=== PATIENT | male | born 1975 | race Caucasian/White ===

== ENCOUNTER 2020-05-17 17:24 | Emergency (ER) | payer MEDICAID, SELFPAY ==
--- NOTE | 2020-05-17 | ECG_ITS ---
Test Reason : SUBSTANE ABUSE Blood Pressure : / mmHG Vent. Rate : 075 BPM Atrial Rate : 075 BPM P-R Int : 120 ms QRS Dur : 090 ms QT Int : 402 ms P-R-T Axes : 015 018 003 degrees QTc Int : 448 ms Normal sinus rhythm Normal ECG When compared with ECG of 06-JUN-2010 05:32, No significant change was found Referred By: Ceci Hernandez Electronically Signed By:GIDEON JOHNSTON MD
[2020-05-17 19:14] VITALS: BP 102/74; PULSE 81; RESP 18; TEMP 37.1; O2SAT 96; BMI 36.3
--- NOTE | 2020-05-17 19:50 | ED_ITS ---
HPI - Alcohol General Chief Complaint: ETOH/Substance Use <Ceci Hernandez NP - Last Filed: 05/18/20 03:00> Stated Complaint: ANXIETY <Ceci Hernandez NP - Last Filed: 05/18/20 03:00> Time Seen by Provider: 05/17/20 19:59 <Ceci Hernandez NP - Last Filed: 05/18/20 03:00> Source: patient and family <CAROL Woods Last Filed: 05/18/20 03:00> Mode of arrival: ambulatory <Ceci Hernandez NP - Last Filed: 05/18/20 03:00> Limitations: no limitations <Ceci Hernandez NP - Last Filed: 05/18/20 03:00> History of Present Illness HPI narrative: patient presents with anxiety and palpitations after eating marijuana edibles. he is answering questions but slowly, is intoxicated, is able to follow directions at this time. He states to feel high, have some anxiety at this time, but does not report any chest pain or pressure, palpitations, shortness of breath, abdominal pain, abdominal distention, dysuria, hematuria, and any other concerning symptoms at this time. He does not have any suicidal ideation, homicidal ideation, or auditory visual hallucinations. <CAROL Woods Last Filed: 05/18/20 03:00> Associated symptoms: denies other symptoms <Ceci Hernandez NP - Last Filed: 05/18/20 03:00> Related Data Allergies/Adverse Reactions: Allergies Allergy/AdvReac Type Severity Reaction Status Date / Time No Known Allergies Allergy Mild NOT Verified 05/17/20 19:17 APPLICABLE <Ceci Hernandez NP - Last Filed: 05/18/20 03:00> Review of Systems Review of Systems: Yes all other systems are reviewed and are negative <Ceci Hernandez NP - Last Filed: 05/18/20 03:00> Constitutional: Constitutional: Reports no additional constitutional complaints <CAROL Woods Last Filed: 05/18/20 03:00> Eyes: Eyes: Reports no additional eye complaints <CAROL Woods Last Filed: 05/18/20 03:00> ENT: Reports system reviewed and no additional complaints, except as documented <Ceci Hernandez NP - Last Filed: 05/18/20 03:00> Cardiovascular: Cardiovascular: Reports palpitations <Ceci Hernandez NP - Last Filed: 05/18/20 03:00> Respiratory: Respiratory: Reports no additional respiratory complaints <Ceci Hernandez NP - Last Filed: 05/18/20 03:00> Gastrointestinal: Gastrointestinal: Reports no additional gastrointestinal complaints <Ceci Hernandez NP - Last Filed: 05/18/20 03:00> Genitourinary: Genitourinary: Reports no additional male genitourinary complaints <Ceci Hernandez NP - Last Filed: 05/18/20 03:00> Musculoskeletal: Musculoskeletal: Reports no additional musculoskeletal complaints <Ceci Hernandez NP - Last Filed: 05/18/20 03:00> Integumentary/Breasts: Skin/Breast: Reports system reviewed and no additional complaints, except as docu <Ceci Hernandez NP - Last Filed: 05/18/20 03:00> Neurologic: Reports system reviewed and no additional complaints, except as documented <Ceci Hernandez NP - Last Filed: 05/18/20 03:00> Psychiatric: Psychiatric: Reports no additional psychiatric complaints <Ceci Hernandez NP - Last Filed: 05/18/20 03:00> Endocrine: Endocrine: Reports palpitations <Ceci Hernandez NP - Last Filed: 05/18/20 03:00> Hematologic/Lymphatic: Hematologic/Lymphatic: Reports no additional hematologic/lymphatic complaints <Ceci Hernandez NP - Last Filed: 05/18/20 03:00> [facility] Past Medical History Attestation statement: The following information was validated with the patient. <Ceci Hernandez NP - Last Filed: 05/18/20 03:00> Source: old records reviewed and obtained from family <Ceci Hernandez NP - Last Filed: 05/18/20 03:00> Medical History: Medical History Patient denies medical problems <Ceci Hernandez NP - Last Filed: 05/18/20 03:00> Social History Social History: Social History Advance Directives: No Advance Directives Information Provided: Yes <CAROL Woods Last Filed: 05/18/20 03:00> Physical Exam Vital Signs and I&O and Narrative: Vital Signs and I&O: Vital Signs Temp 98.0 F 05/17/20 20:09 Pulse 75 05/17/20 20:09 Resp 18 05/17/20 20:09 BP 105/65 05/17/20 20:09 Pulse Ox 95 05/17/20 20:09 Intake & Output 05/17/20 05/18/20 05/18/20 18:59 06:59 18:59 Weight 102.058 kg Body Mass Index 36.3 <CAROL Woods Last Filed: 05/18/20 03:00> Vital Signs and I&O: Vital Signs Temp 98.0 F 05/17/20 20:09 Pulse 75 05/17/20 20:09 Resp 18 05/17/20 20:09 BP 105/65 05/17/20 20:09 Pulse Ox 95 05/17/20 20:09 Intake & Output 05/17/20 05/18/20 05/18/20 18:59 06:59 18:59 Weight 102.058 kg Body Mass Index 36.3 <Samuel Tillman DO - Last Filed: 05/18/20 17:39> Const: General: cooperative, comfortable, no acute distress, well developed, alert, awake, Physically active and anxious <CAROL Woods Last Filed: 05/18/20 03:00> Nutritional Appearance: overweight <Ceci Hernandez NP - Last Filed: 05/18/20 03:00> Orientation/consciousness: patient oriented x3 <CAROL Woods Last Filed: 05/18/20 03:00> Limitations: no limitations <Ceci Hernandez NP - Last Filed: 05/18/20 03:00> HENMT: Head: Yes normal to inspection <CAROL Woods Last Filed: 05/18/20 03:00> Ears: hearing grossly normal bilaterally <Ceci Hernandez NP - Last Filed: 05/18/20 03:00> Face and sinus: Yes normal facial exam <Ceci Hernandez NP - Last Filed: 05/18/20 03:00> Mouth: Normal oral and palatal mucosa present <Ceci Hernandez NP - Last Filed: 05/18/20 03:00> Throat: Yes posterior oropharynx normal, Yes tonsils normal and Yes uvula midline <Ceci Hernandez NP - Last Filed: 05/18/20 03:00> Eyes: Periorbital: periorbital findings normal <Ceci Hernandez NP - Last Filed: 05/18/20 03:00> Pupils: Equal, round and reactive pupils present <Ceci Hernandez NP - Last Filed: 05/18/20 03:00> EOM: EOMs intact bilaterally <Ceci Hernandez NP - Last Filed: 05/18/20 03:00> Neck: Neck: Yes normal visual inspection, Yes full ROM, Yes no lymphadenopathy, Yes no meningeal signs and Yes trachea midline <Ceci Hernandez NP - Last Filed: 05/18/20 03:00> Chest: Chest palpation & inspection: normal inspection of the chest <Ceci Hernandez NP - Last Filed: 05/18/20 03:00> Resp: Effort & Inspection: normal respiratory effort and able to speak in complete sentences <Ceci Hernandez NP - Last Filed: 05/18/20 03:00> Cardio: Jugular venous distension: no JVD <Ceci Hernandez NP - Last Filed: 05/18/20 03:00> Rate: regular rate <Ceci Hernandez NP - Last Filed: 05/18/20 03:00> Rhythm: regular rhythm <Ceci Hernandez NP - Last Filed: 05/18/20 03:00> Heart sounds: S1 normal heart sound present and S2 normal heart sound present <Ceci Hernandez NP - Last Filed: 05/18/20 03:00> GI: Inspection: Yes normal to inspection <Ceci Hernandez NP - Last Filed: 05/18/20 03:00> : General: Yes Bimanual renal exam normal bilaterally <Ceci Hernandez NP - Last Filed: 05/18/20 03:00> Skin: General skin exam: no rashes or lesions noted <Ceci Hernandez NP - Last Filed: 05/18/20 03:00> Neuro: General: patient oriented x3 and no meningeal signs <Ceci Hernandez NP - Last Filed: 05/18/20 03:00> Cranial nerves: Yes CN's II-XII intact bilaterally, Yes Facial sensation intact/muscles of mastication intact, Yes Intact sense of smell present, Yes Equal, round and reactive pupils present and Yes Nystagmus not present <Ceci Hernandez NP - Last Filed: 05/18/20 03:00> Cognition (Neuro): normal cognition <Ceci Hernandez NP - Last Filed: 05/18/20 03:00> Gait exam (Neuro): Normal gait present <Ceci Hernandez NP - Last Filed: 05/18/20 03:00> Motor exam (neuro): 5/5 motor strength present throughout <Ceci Hernandez NP - Last Filed: 05/18/20 03:00> Extrem: General: Yes normal to inspection <Ceci Hernandez NP - Last Filed: 05/18/20 03:00> Psych: Appearance: grossly normal <Ceci Hernandez NP - Last Filed: 05/18/20 03:00> Mental Status: mental status grossly normal <Ceci Hernandez NP - Last File d: 05/18/20 03:00> Speech and movement: Normal speech and movement present <Ceci Hernandez NP - Last Filed: 05/18/20 03:00> Affect: normal affect <Ceci Hernandez NP - Last Filed: 05/18/20 03:00> Attitude: cooperative <Ceci Hernandez NP - Last Filed: 05/18/20 03:00> Course Course Course Narrative: 44-year-old male presents with anxiety and palpitations after eating marijuana edibles. At this time patient's physical exam is normal, we will order EKG for his concerns regarding palpitations. Discussion with family, his states that he did eat the edible and was having a difficult time managing this symptoms of marijuana intoxication. Patient is not suicidal, homicidal, is not having any auditory or visual hallucinations. Does not have any other complaints at this time. EKG is normal sinus rhythm. Plan of care is to discharge home, his will pick him up. Discussion with regarding plan of care, will remind him to be cautious when doing drugs. <Ceci Hernandez NP - Last Filed: 05/18/20 03:00> MDM - Alcohol MDM Narrative Medical decision making narrative: Marijuana intoxication, cardiac arrhythmia, substance abuse <Ceci Hernandez NP - Last Filed: 05/18/20 03:00> Medical Records Attestation: I reviewed the patient's medical records. <Ceci Hernandez NP - Last Filed: 05/18/20 03:00> ECG Data Attestation: I personally reviewed and interpreted this ECG as follows: <CAROL Woods Last Filed: 05/18/20 03:00> ECG interpretation date: 05/17/20 <Ceci Hernandez NP - Last Filed: 05/18/20 03:00> ECG interpretation time: 20:07 <Ceci Hernandez NP - Last Filed: 05/18/20 03:00> Interpretation: normal sinus rhythm, 75 beats per minute, p.r. interval 120, QTC 402, QTC 448, no indication of ST elevation or depression. No significant change when compared to EKG of June 06, 2010 <Ceci Hernandez NP - Last Filed: 05/18/20 03:00> Discharge Plan Discharge Clinical Impression: Marijuana intoxication Qualifiers: Complication of substance-induced condition: uncomplicated Qualified Code(s): F12.920 - Cannabis use, unspecified with intoxication, uncomplicated <Ceci Hernandez NP - Last Filed: 05/18/20 03:00> Patient Disposition: Home, Self-Care <Ceci Hernandez NP - Last Filed: 05/18/20 03:00> Instructions: Cannabis Abuse (ED) <Ceci Hernandez NP - Last Filed: 05/18/20 03:00> Additional Instructions: please consider using less marijuana edible. Your EKG is normal sinus rhythm. There is no indication of swelling in Your mouth or throat. the symptoms that you are feeling are associated with marijuana intoxication. Follow-up with primary care provider as needed. Return to the emergency department for any new, concerning, or worsening symptoms. <Ceci Hernandez NP - Last Filed: 05/18/20 03:00> Interventions: ED Discharge Assessment Last Done: 05/17/20 20:58 <Ceci Hernandez NP - Last Filed: 05/18/20 03:00> Discharge Date/Time: 05/17/20 20:59 <Ceci Hernandez NP - Last Filed: 05/18/20 03:00>
[2020-05-17 20:09] VITALS: BP 105/65; PULSE 75; RESP 18; TEMP 36.7; O2SAT 95
--- NOTE | 2020-05-17 20:48 | PC.NURSE ---
SPK W/PTS , PT TO WAIT IN WAITING ROOM FOR P/U
== END 2020-05-17 20:59 | disposition home or self-care (01) ==
PROVIDERS: Emergency Provider Emergency Medicine
DX: F12.120 Cannabis abuse with intoxication, uncomplicated (principal)
CPT/HCPCS: 93005; 99283

== ENCOUNTER 2020-06-19 12:59 | Outpatient (REF) | payer MEDICAID, SELFPAY | END 2020-06-19 13:00 | disposition home or self-care (01) | LOC: HO.LAB 12:59 | PROVIDERS: Visit Provider Internal Medicine | DX: Z20.828 Contact with and (suspected) exposure to other viral communicable diseases (principal) | CPT/HCPCS: C9803; U0003 ==

== ENCOUNTER 2020-12-12 10:33 | Emergency (ER) | payer MEDICAID, SELFPAY ==
--- NOTE | ~2020-12-12 | XR_ITS ---
EXAMINATION: XR LUMBOSACRAL SPINE CLINICAL INFORMATION: Status post injury. Pain COMPARISON: None TECHNIQUE: Three views of the lumbosacral spine. FINDINGS: There is normal lumbar lordosis. There were heights, alignment and disc heights are normal. There is no visible acute fracture, dislocation or subluxation. No lytic or sclerotic process seen. The paravertebral soft tissues are normal. XR/XR lumbar spine 2-3V IMPRESSION: Unremarkable lumbar spine exam.
[2020-12-12 10:35] VITALS: BP 127/85; PULSE 69; RESP 18; TEMP 36.4; O2SAT 98; BMI 33.3
--- NOTE | 2020-12-12 11:24 | ED.BACK ---
HPI - Back Pain/Injury General Chief Complaint: Back Pain/Injury Stated Complaint: back pain Time Seen by Provider: 12/12/20 10:56 Source: patient Mode of arrival: ambulatory Limitations: no limitations History of Present Illness HPI Narrative: 45 y/o male with no significant medical history presents to the ER with acute onset of right lower back pain that started 2 days ago after he was lifting a heavy potted plant. He states he felt his back tighten up and his mobility has been limited since. He reports pain is worse with palpation and movement. He has no numbness, tingling, weakness, incontinence. No fevers or chills. He is walking with a limp due to the pain. 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 elicited complaint: back pain and back injury Onset (ago): day(s) (2) Timing: constant Severity: moderate Similar Symptoms Previously: Yes (once several years ago) Quality: aching and spasming Location: right lower back Radiation: none Exacerbating factors: movement and walking Relieving factors: immobilization and sitting upright Context: while lifting Associated symptoms: denies other symptoms Treatments prior to arrival: NSAIDS Work related injury: No Related Data Previous Rx's Medication Instructions Recorded cyclobenzaprine 10 mg PO TID PRN #12 tab 12/12/20 ibuprofen 600 mg PO Q8H PRN #20 tab 12/12/20 lidocaine [Lidoderm] 1 patch TOPICAL DAILY #15 ea 12/12/20 Allergies Allergy/AdvReac Type Severity Reaction Status Date / Time No Known Allergies Allergy Mild NOT Verified 12/12/20 10:35 APPLICABLE Review of Systems Review of Systems: Constitutional: No Fever, No Chills Gastrointestinal: No Nausea, No Vomiting, No Diarrhea, No abdominal Pain Genitourinary: No Dysuria, No Urinary Frequency, No Hematuria Musculoskeletal: No joint pain, + Myalgias Skin: No Skin Lesions, No rash Neuro: No Weakness, No Numbness Heme/Lymph: No Bruising PMFSH Past Medical History Attestation statement: The following information was validated with the patient. Medical History Patient denies medical problems Social History Social History Advance Directives: No Advance Directives Information Provided: No Physical Exam Vital Signs: Vital Signs: Last Vital Signs Temp 97.6 F 12/12/20 10:35 Pulse 69 12/12/20 10:35 Resp 18 12/12/20 10:35 BP 127/85 12/12/20 10:35 Pulse Ox 98 12/12/20 10:35 Body Mass Index 33.3 Appearance: Alert. Oriented X3. No acute distress. HEENT: normal inspection CVS: Normal heart rate and rhythm. Pulses normal. Respiratory: No respiratory distress. Skin: Skin warm and dry. Normal skin color. Normal skin turgor. No rashes. Back: normal inspection, no spinal tenderness throughout. significant right upper lumbar area with soft tissue tenderness and muscle spasm. pain on spinal flexion and rotation to the left Extremities: atraumatic, no edema Neuro: Oriented X 3. No motor deficit. No sensory deficit. Walks with steady gait. Course Course Course Narrative: 45 y/o male presenting with right lower back pain after heavy lifting 2 days ago. XR is normal. No red flag symptoms of LBP. His exam and clinical presentation are consistent with muscular strain and spasm. Will treat with NSAID, muscle relaxer and lidoderm. Patient is agreeable with plan and encouraged to f/u with his PCP. Ganesh for d/c. Critical Care Time Critical Care Time Critical Care Time: No Discharge Plan Discharge Clinical Impression: Strain of lumbar region Qualifiers: Encounter type: initial encounter Qualified Code(s): S39.012A - Strain of muscle, fascia and tendon of lower back, initial encounter Patient Disposition: Home, Self-Care Instructions: Low Back Strain (ED), Lower Back Exercises (ED) Additional Instructions: Your x-ray today was normal. Your pain is due to muscle strain and spasm. No bending, lifting or twisting. Use ice several times per day for 20 minutes at a time for the next 48 hours and then change to heat. Take medications as prescribed to help with pain and discomfort. Follow up with your Primary Care Doctor this week. If your pain worsens, if you develop new numbness, tingling, weakness, loss of function or incontinence call 911 or come back to the ER right away for evaluation. Tu radiograf?a de hoy fue normal. Pastrana dolor se debe a josh distensi?n muscular y a un espasmo. Sin agacharse, levantar ni torcer. Use hielo varias veces al d?a giuliana 20 minutos a la vez giuliana las pr?ximas 48 horas y luego cambie a calor. [place] los medicamentos recetados para aliviar el dolor y la incomodidad. Eladia un seguimiento con pastrana m?dico de atenci?n primaria esta semana. Si pastrana dolor empeora, si presenta entumecimiento, hormigueo, debilidad, p?rdida de funci?n o incontinencia nuevos, llame al 911 o regrese a la mare de emergencias de inmediato para josh evaluaci?n. Prescriptions: New cyclobenzaprine 10 mg tablet 10 mg PO TID PRN (Reason: muscle spasm) Qty: 12 RF: 0 lidocaine [Lidoderm] 5 % adhesive patch,medicated 1 patch topical DAILY Qty: 15 RF: 0 ibuprofen 600 mg tablet 600 mg PO Q8H PRN (Reason: pain) Qty: 20 RF: 0 Stand Alone Forms: Work/School Release Print Language: Kyrgyz
== END 2020-12-12 11:38 | disposition home or self-care (01) ==
PROVIDERS: Emergency Provider Emergency Medicine
DX: S39.012A Strain of muscle, fascia and tendon of lower back, initial encounter (principal); X50.0XXA Overexertion from strenuous movement or load, initial encounter; Y93.H2 Activity, gardening and landscaping; Y92.017 Garden or yard in single-family (private) house as the place of occurrence of the external cause; Y99.9 Unspecified external cause status
CPT/HCPCS: 72100; 99283

== ENCOUNTER 2021-01-15 17:22 | Emergency (ER) | payer MEDICAID, SELFPAY ==
--- NOTE | ~2021-01-15 | XR_ITS ---
EXAMINATION: XR PELVIS CLINICAL INFORMATION: Status post fall with question of pubic rami fracture COMPARISON: None TECHNIQUE: AP view of the pelvis. FINDINGS: The bones and soft tissues are normal. No fracture. Sacroiliac and hip joints are normal. Pubic symphysis is normal. No abnormal soft tissue calcifications. XR/XR pelvis 1-2V IMPRESSION: Normal pelvis.
[2021-01-15 17:42] VITALS: BP 110/75; PULSE 101; RESP 16; TEMP 35.8; O2SAT 97; BMI 30.4
--- NOTE | 2021-01-15 18:17 | ED_ITS ---
HPI - Extremity Injury (Lower) General Chief Complaint: Extremity Injury, Lower Stated Complaint: leg pain Time Seen by Provider: 01/15/21 18:12 Source: patient Mode of arrival: ambulatory Limitations: no limitations History of Present Illness HPI Narrative: Patient was playing baseball 2 days ago split his leg open complaining of pain right groin since then no other injuries patient ambulatory taking ibuprofen and still having the pain in his right groin Related Data Previous Rx's Medication Instructions Recorded cyclobenzaprine 10 mg PO TID PRN #12 tab 12/12/20 ibuprofen 600 mg PO Q8H PRN #20 tab 12/12/20 lidocaine [Lidoderm] 1 patch TOPICAL DAILY #15 ea 12/12/20 Allergies Allergy/AdvReac Type Severity Reaction Status Date / Time No Known Allergies Allergy Mild NOT Verified 12/12/20 10:35 APPLICABLE Review of Systems Review of Systems: Yes all other systems are reviewed and are negative [facility] Past Medical History Medical History Patient denies medical problems Social History Social History Advance Directives: No Advance Directives Information Provided: No Physical Exam Vital Signs: Vital Signs: Last Vital Signs Temp 96.4 F L 01/15/21 17:42 Pulse 101 H 01/15/21 17:42 Resp 16 01/15/21 17:42 BP 110/75 01/15/21 17:42 Pulse Ox 97 01/15/21 17:42 Body Mass Index 30.4 Const: General: no acute distress and well developed HENMT: Head: Yes normocephalic and Yes atraumatic Resp: Effort & Inspection: normal respiratory effort Cardio: Palpation: normal PMI Rate: regular rate Rhythm: regular rhythm Heart sounds: S1 normal heart sound present and S2 normal heart sound present Extrem: Upper/lower leg/hip images: 1. Tenderness in the right groin area which increases on hip flexion and adduction no skin bruising no swelling no bony tenderness ,good range of movement MDM - Extremity Injury (Lower) MDM Narrative Medical decision making narrative: X-ray of the pelvis negative clinically patient has right groin strain will discharge patient home on tramadol and Flexeril Discharge Plan Discharge Prescriptions: No Action cyclobenzaprine 10 mg tablet 10 mg PO TID PRN (Reason: muscle spasm) Qty: 12 RF: 0 lidocaine [Lidoderm] 5 % adhesive patch,medicated 1 patch topical DAILY Qty: 15 RF: 0 ibuprofen 600 mg tablet 600 mg PO Q8H PRN (Reason: pain) Qty: 20 RF: 0
== END 2021-01-15 19:12 | disposition home or self-care (01) ==
PROVIDERS: Emergency Provider Internal Medicine
DX: M79.604 Pain in right leg (principal); R10.31 Right lower quadrant pain; Z79.899 Other long term (current) drug therapy
CPT/HCPCS: 72170; 99283

== ENCOUNTER 2021-03-31 13:47 | Emergency (ER) | payer MEDICAID, SELFPAY ==
--- NOTE | ~2021-03-31 | XR_ITS ---
EXAMINATION: CR X-RAY FOOT AND ANKLE RIGHT CLINICAL INFORMATION: Right foot and ankle pain status post injury. COMPARISON: None TECHNIQUE: 3 views each of the right foot and ankle were obtained. FINDINGS: The ankle joint and mortise are intact. There is no acute fracture or dislocation. The tarsal bones are normally aligned. The metatarsals and phalanges demonstrate no acute fracture. A concave defect is seen along the distal/medial aspect of the proximal phalanx of the first digit. The soft tissues are unremarkable. XR/XR foot RT min 3V IMPRESSION: 1. No acute fracture of the right foot and ankle. 2. Small concave defect along the distal/medial aspect of the proximal veins of the first digit is nonspecific. This does not appear acute and could be degenerative in nature. Gout can also cause this appearance. Correlate with patient history.
--- NOTE | ~2021-03-31 | XR_ITS ---
EXAMINATION: CR X-RAY FOOT AND ANKLE RIGHT CLINICAL INFORMATION: Right foot and ankle pain status post injury. COMPARISON: None TECHNIQUE: 3 views each of the right foot and ankle were obtained. FINDINGS: The ankle joint and mortise are intact. There is no acute fracture or dislocation. The tarsal bones are normally aligned. The metatarsals and phalanges demonstrate no acute fracture. A concave defect is seen along the distal/medial aspect of the proximal phalanx of the first digit. The soft tissues are unremarkable. XR/XR ankle RT min 3V IMPRESSION: 1. No acute fracture of the right foot and ankle. 2. Small concave defect along the distal/medial aspect of the proximal veins of the first digit is nonspecific. This does not appear acute and could be degenerative in nature. Gout can also cause this appearance. Correlate with patient history.
[2021-03-31 13:52] VITALS: BP 130/82; PULSE 106; O2SAT 96
[2021-03-31 14:01] VITALS: BP 130/82; PULSE 99; RESP 18; TEMP 36.9; O2SAT 96; BMI 35.5
--- NOTE | 2021-03-31 15:36 | ED.LOWEXIN ---
HPI - Extremity Injury (Lower) General Chief Complaint: Extremity Injury, Lower Stated Complaint: ankle injury Time Seen by Provider: 03/31/21 13:59 History of Present Illness HPI Narrative: Patient complains of right ankle pain and swelling after twisting it playing ball today, pain is mild, no numbness or tingling no other injury Related Data Previous Rx's Medication Instructions Recorded cyclobenzaprine 10 mg tablet 10 mg PO TID PRN #12 tab 12/12/20 ibuprofen 600 mg tablet 600 mg PO Q8H PRN #20 tab 12/12/20 lidocaine 5 % topical patch 1 patch TOPICAL DAILY #15 ea 12/12/20 (Lidoderm) cyclobenzaprine 10 mg tablet 10 mg PO Q8H #20 tab 01/15/21 tramadol 50 mg tablet 50 mg PO Q6H PRN #20 tab 01/15/21 ibuprofen 600 mg tablet 600 mg PO Q6H PRN #20 tab 03/31/21 Allergies Allergy/AdvReac Type Severity Reaction Status Date / Time No Known Allergies Allergy Mild NOT Verified 12/12/20 10:35 APPLICABLE Review of Systems Review of Systems: Positive for right ankle pain and swelling Negatives are no headache no loss of consciousness no head injury no neck pain no numbness weakness or tingling no back pain no other extremity injuries no lacerations Yes all other systems are reviewed and are negative PMFSH Past Medical History Source: nursing notes reviewed Medical History Patient denies medical problems Physical Exam Vital Signs: Vital Signs: Last Vital Signs Temp 98.5 F 03/31/21 14:01 Pulse 99 03/31/21 14:01 Resp 18 03/31/21 14:01 BP 130/82 03/31/21 14:01 Pulse Ox 96 03/31/21 14:01 Body Mass Index 35.5 General appearance no acute distress Head is normocephalic atraumatic Neck is supple nontender Respiratory no distress The back full range of motion Right angle had tenderness and swelling around the lateral malleolus and some more minor swelling around the medial malleolus, skin is intact and neurovascular intact distal, the knee has full range of motion without any tenderness, Achilles tendon is intact and functional Other extremities normal Skin no lacerations Neuro no focal motor sensory deficits Course Course Course Narrative: Right ankle x-rays were negative and patient is discharged to follow with orthopedist as needed Discharge Plan Discharge Clinical Impression: Sprain of ankle, right Patient Disposition: Home, Self-Care Additional Instructions: X-ray did not show any broken bone If needed follow with orthopedist if not getting better in 1-2 weeks Return any time any worse condition or concerns Prescriptions: New ibuprofen 600 mg tablet 600 mg PO Q6H PRN (Reason: pain) Qty: 20 RF: 0 No Action cyclobenzaprine 10 mg tablet 10 mg PO TID PRN (Reason: muscle spasm) Qty: 12 RF: 0 lidocaine [Lidoderm] 5 % adhesive patch,medicated 1 patch topical DAILY Qty: 15 RF: 0 ibuprofen 600 mg tablet 600 mg PO Q8H PRN (Reason: pain) Qty: 20 RF: 0 cyclobenzaprine 10 mg tablet 10 mg PO Q8H Qty: 20 RF: 0 tramadol 50 mg tablet 50 mg PO Q6H PRN (Reason: pain) Qty: 20 RF: 0 Referrals: Kenyon Hunter MD [Physician] - 2 days (Right ankle sprain) Stand Alone Forms: Work/School Release Interventions: ED Discharge Assessment Last Done: 03/31/21 15:43 Discharge Date/Time: 03/31/21 15:44
== END 2021-03-31 15:44 | disposition home or self-care (01) ==
PROVIDERS: Emergency Provider Internal Medicine
DX: S93.401A Sprain of unspecified ligament of right ankle, initial encounter (principal); X50.1XXA Overexertion from prolonged static or awkward postures, initial encounter; Y93.64 Activity, baseball; Y92.320 Baseball field as the place of occurrence of the external cause; Y99.9 Unspecified external cause status
CPT/HCPCS: 73610; 73630; 99283

== ENCOUNTER → 2021-04-12 08:46 | Outpatient (BNVA) | payer MEDICAID, SELFPAY | PROVIDERS: Visit Provider Physician Assistant | DX: S86.111A Strain of other muscle(s) and tendon(s) of posterior muscle group at lower leg level, right leg, initial encounter (principal) | CPT/HCPCS: 99202 ==

== ENCOUNTER → 2021-05-04 08:45 | Outpatient (BNVA) | payer MEDICAID, SELFPAY | PROVIDERS: Visit Provider Physician Assistant | DX: S86.111D Strain of other muscle(s) and tendon(s) of posterior muscle group at lower leg level, right leg, subsequent encounter (principal); S93.401D Sprain of unspecified ligament of right ankle, subsequent encounter | CPT/HCPCS: 99212 ==

== ENCOUNTER → 2021-06-15 12:06 | Outpatient (BNVA) | payer MEDICAID, SELFPAY | PROVIDERS: Visit Provider Physician Assistant ==

== ENCOUNTER 2021-08-31 13:57 | Outpatient (REF) | payer MEDICAID, SELFPAY ==
--- NOTE | ~2021-08-31 | US_ITS ---
EXAMINATION: US VENOUS ULTRASOUND WITH DOPPLER LOWER EXTREMITY, RIGHT CLINICAL INFORMATION: This is a 46-year-old male with right leg swelling and pain. Possible deep vein thrombosis. COMPARISON: None TECHNIQUE: Ultrasound of the deep veins is performed from the hip to the calf with compression sonography and color and pulse Doppler assessment. Spectral analysis with color-flow imaging is performed. FINDINGS: There is normal venous compression and respiratory variation and augmented flow. The visualized common femoral vein, superficial femoral vein, profunda femoral vein, popliteal vein, and the trifurcation region shows no evidence of deep venous thrombosis. There is no significant popliteal fossa cyst. If the patient's symptoms persist, followup ultrasound in 5 days 7 days might be of value to exclude proximal propagation from a non-visualized calf vein. US/US venous duplex LE RT IMPRESSION: No DVT demonstrated in the right lower extremity.
== END 2021-08-31 13:58 | disposition home or self-care (01) ==
LOC: HO.XRAY 13:57
PROVIDERS: Visit Provider Nurse Practitioner
DX: M79.661 Pain in right lower leg (principal)
CPT/HCPCS: 93971

== ENCOUNTER 2021-09-19 17:32 | Emergency (ER) | payer MEDICAID, SELFPAY ==
--- NOTE | ~2021-09-19 | XR_ITS ---
EXAMINATION: XR CHEST CLINICAL INFORMATION: Cough and shortness of breath COMPARISON: Chest and RIBS 12/20/2018 TECHNIQUE: 2 views of the chest were obtained. FINDINGS: The lungs are mildly hypoinflated with some minimal left basilar atelectasis. No significant abnormality is noted involving the heart, lungs, mediastinum, bony thorax or soft tissues. No pleural effusions are seen. No infiltrates or lung masses. XR/XR chest 2V IMPRESSION: No acute intrathoracic disease
--- NOTE | ~2021-09-19 | CT_ITS ---
EXAMINATION: CT ANGIOGRAM OF THE CHEST WITH AND WITHOUT CONTRAST (CT PULMONARY ANGIOGRAM FOR PE) CLINICAL INFORMATION: Positive d-dimer. Shortness of breath and chest pain. Positive Covid. COMPARISON: Chest x-ray earlier today and chest x-ray 11/20/2017. Chest CT 05/02/2018 was also reviewed. TECHNIQUE: Prior to contrast administration, noncontrast localization images were obtained. Subsequently, multidetector volumetric imaging was performed from the thoracic inlet to below the diaphragms following the administration of 75 mL Omnipaque 350 intravenous contrast. No contrast reaction reported Sagittal, coronal, and MIP oblique sagittal reformatted images were obtained on the CT workstation, uploaded to PACS, and reviewed. Detailed lung parenchyma evaluation is limited secondary to respiratory motion artifact. This CT examination was performed using dose optimization techniques as appropriate, variously including the following: *Automated exposure control *Adjustment of mA and/or kV according to patient size (this includes techniques or standardized protocols for targeted exams where dose is matched to indication/reason for exam; i.e. extremities or head) *Use of iterative reconstruction technique Total exam dose-length product 382 mGy-cm FINDINGS: The heart is normal in size. There is no pericardial effusion. No pulmonary arterial filling defect within the main or segmental pulmonary arteries to suggest pulmonary embolus. Subsegmental pulmonary arteries are suboptimally evaluated secondary to diffuse bilateral airspace disease, however, no gross subsegmental pulmonary emboli is noted. Normal caliber thoracic aorta. No gross mediastinal lymphadenopathy. No enlarged axillary lymph nodes. Central airways are patent. Lungs are mildly hypoinflated. Patchy groundglass opacities are noted bilaterally in a predominantly peripheral distribution. There is no gross lobar consolidation present. No pleural effusion or pneumothorax. Evaluation for pulmonary nodule is suboptimal given background of airspace disease and respiratory motion artifact. Visualized portions of the upper abdomen demonstrate an approximately 2.8 cm gallstone within an otherwise unremarkable appearing gallbladder. No acute osseous abnormalities. CT/CT angio chest PE protocol IMPRESSION: -No pulmonary emboli identified. -Patchy bilateral airspace disease is most consistent with provided history of Covid pneumonia. Cholelithiasis. VTE: negative
[2021-09-19 18:20] VITALS: BP 123/76; PULSE 88; RESP 19; TEMP 36.6; O2SAT 98; BMI 34.7
--- NOTE | 2021-09-19 19:22 | ECG_ITS ---
Test Reason : SOB Blood Pressure : / mmHG Vent. Rate : 072 BPM Atrial Rate : 072 BPM P-R Int : 160 ms QRS Dur : 078 ms QT Int : 394 ms P-R-T Axes : 015 025 -04 degrees QTc Int : 431 ms Normal sinus rhythm Cannot rule out Inferior infarct , age undetermined Abnormal ECG When compared with ECG of 17-MAY-2020 20:07, No significant change was found Referred By: Jadyn Cho Electronically Signed By:Jaya Galvez
--- NOTE | 2021-09-19 19:24 | ED.URI ---
HPI - URI/Sore Throat General Chief Complaint: Upper Respiratory Symptoms Stated Complaint: diff breathing/ chest pains Time Seen by Provider: 09/19/21 18:44 Source: patient and hourly sign language interpreter Mode of arrival: ambulatory Limitations: language barrier History of Present Illness HPI Narrative: 46 yo male healthy here with cough x 1 week with chest discomfort with coughing and back pain with coughing and deep breathing. No SOB, leg swelling or pain, fevers, chills. No recent travel or sick contact. No history of blood clots. No family history of blood clots. Patient not vaccinated for COVID Related Data Previous Rx's Medication Instructions Recorded cyclobenzaprine 10 mg tablet 10 mg PO TID PRN #12 tab 12/12/20 ibuprofen 600 mg tablet 600 mg PO Q8H PRN #20 tab 12/12/20 lidocaine 5 % topical patch 1 patch TOPICAL DAILY #15 ea 12/12/20 (Lidoderm) cyclobenzaprine 10 mg tablet 10 mg PO Q8H #20 tab 01/15/21 tramadol 50 mg tablet 50 mg PO Q6H PRN #20 tab 01/15/21 ibuprofen 600 mg tablet 600 mg PO Q6H PRN #20 tab 03/31/21 Allergies Allergy/AdvReac Type Severity Reaction Status Date / Time No Known Allergies Allergy Mild NOT Verified 05/04/21 09:13 APPLICABLE Review of Systems Review of Systems: Yes all other systems are reviewed and are negative Constitutional: Constitutional: Reports no additional constitutional complaints, Denies body ache(s), Denies chills, Denies fever(s), Denies headache(s) and Denies weakness Eyes: Eyes: Reports no additional eye complaints and Denies change in vision ENT: Reports system reviewed and no additional complaints, except as documented, Denies dizziness, Denies headache(s), Denies nasal congestion, Denies nasal discharge and Denies neck pain Cardiovascular: Cardiovascular: Reports no additional cardiovascular complaints, Reports chest pain, Denies leg edema and Denies dyspnea Respiratory: Respiratory: Reports no additional respiratory complaints, Reports cough and Denies dyspnea Gastrointestinal: Gastrointestinal: Reports no additional gastrointestinal complaints, Denies abdominal pain, Denies diarrhea, Denies nausea and Denies vomiting Genitourinary: Genitourinary: Denies urinary incontinence Musculoskeletal: Musculoskeletal: Reports no additional musculoskeletal complaints, Reports back pain, Denies arthralgias, Denies joint swelling, Denies neck pain, Denies numbness and Denies tingling Integumentary/Breasts: Skin/Breast: Reports system reviewed and no additional complaints, except as docu and Denies rash Neurologic: Reports system reviewed and no additional complaints, except as documented, Denies Abnormal speech present, Denies dizziness, Denies headache(s), Denies numbness, Denies tingling and Denies weakness PMF Past Medical History Attestation statement: The following information was validated with the patient. 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 Physical Exam Vital Signs: Vital Signs: Last Vital Signs Temp 98 F 09/19/21 18:20 Pulse 88 09/19/21 18:20 Resp 19 09/19/21 18:20 BP 123/76 09/19/21 18:20 Pulse Ox 98 09/19/21 18:20 BMI result Body Mass Index 34.7 Const: General: cooperative, healthy appearing, comfortable and no acute distress Orientation/consciousness: patient oriented x3 Limitations: no limitations HENMT: Head: Yes normal to inspection Ears: hearing grossly normal bilaterally and TM's normal bilaterally General nose exam: Normal external nose present Face and sinus: Yes normal facial exam Mouth: Normal oral and palatal mucosa present Throat: Yes posterior oropharynx normal, Yes tonsils normal and Yes uvula midline Eyes: General: appearance normal, both eyes and all related structures Pupils: Equal, round and reactive pupils present Neck: Neck: Yes normal visual inspection Chest: Chest palpation & inspection: normal inspection of the chest and tenderness (Chest discomfort with palpation, coughing and deep breathing) Resp: Effort & Inspection: normal respiratory effort Auscultation: clear to auscultation bilaterally Cardio: Rate: regular rate Rhythm: regular rhythm Peripheral pulses: Peripheral pulses 2+ throughout GI: Inspection: Yes normal to inspection Palpation (GI): Soft to palpation and nontender Auscultation: normal bowel sounds Back/Spine/Pelvis: Other: Mid back pain with coughing, deep breathing and palpation Thoracic/Lumbar Spine: thoracic and lumbar spine normal to inspection Skin: General skin exam: no rashes or lesions noted Neuro: General: patient oriented x3, no focal motor deficits and normal sensation to monofilament Cranial nerves: Yes Equal, round and reactive pupils present Cognition (Neuro): normal cognition Speech: No Abnormal speech present Gait exam (Neuro): Normal gait present Motor exam (neuro): 5/5 motor strength present throughout Extrem: General: Yes normal to inspection, Yes no pedal edema and Yes no calf tenderness Course Course Course Narrative: 46-year-old male here with URI symptoms for 1 week with chest discomfort with coughing, breathing and palpation as well as mid back pain. Vitals are stable. Lungs are clear. Will check EKG, labs, chest x-ray, COVID screen. Will give albuterol MDI and reassess 2044-Covid +, elevated d dimer. Will check CTA to r/o pe 2119-CTA negative for PE. Does show patchy bilateral airspace opacities. Patient ambulated with pulse oximeter with oxygen saturation greater than 98%. Will discharge home with course of antibiotics, prednisone, inhaler. Unfortunately due to symptoms greater than 1 week patient is not a candidate for oral antivirals. He does meet criteria for monoclonal antibodies for obesity with a BMI greater than 30. Referral was sent. Patient was given a copy of this. Reviewed worrisome signs and symptoms with the patient when to return to the emergency department. Comfortable discharge home. MDM - URI/Sore Throat MDM Narrative Medical decision making narrative: Chest wall strain, pneumonia, PE Medical Records Attestation: I reviewed the patient's medical records. Lab Data Attestation: I reviewed the patient's lab results. Result diagrams: 09/19/21 19:55 09/19/21 19:55 Labs: Lab Results 09/19/21 09/19/21 09/19/21 Range/Units 19:55 19:55 19:55 WBC 4.1 L (4.8-10.8) X10*3/uL RBC 5.41 (4.60-5.80) X10*6/uL Hgb 14.9 (14.0-18.0) g/dl Hct 46.8 (42.0-52.0) % MCV 86.5 (80.0-98.0) fL MCH 27.5 (27.0-33.0) pg MCHC 31.8 (31.0-36.0) g/dl RDW 11.7 (11.0-16.0) % Plt Count 167 (160-400) X10*3/uL MPV 9.8 (9.4-12.4) fL Immature Gran % (Auto) 0.2 (0.0-0.4) % Neut % (Auto) 58.0 (45-73) % Lymph % (Auto) 33.3 (20-40) % [place] % (Auto) 8.1 (2-11) % Eos % (Auto) 0.2 (0-4) % Baso % (Auto) 0.2 (0-2) % Lymph # (Auto) 1.4 (1.2-4.9) X10*3/uL [place] # (Auto) 0.3 (0.1-1.2) X10*3/uL Eos # (Auto) 0.0 (0.0-0.4) X10*3/uL Baso # (Auto) 0.0 (0.0-0.2) X10*3/uL Abs Immat Gran (auto) 0.01 (0.00-0.03) X10*3/uL Absolute Neuts (auto) 2.4 (2.0-8.3) x10*3/uL Absolute Nucleated RBC 0.000 (0.0-0.012) X10*3/uL Nucleated RBC % (auto) 0.0 (0.0-0.2) /100WBC PT (9.9-13.0) SEC INR (0.9-1.1) D-Dimer High Sensitivty NG/ML Sodium 138 (135-145) mmol/L Potassium 4.3 (3.3-5.1) mmol/L Chloride 105 (96-108) mmol/L Carbon Dioxide 27 (22-29) mmol/L Anion Gap 10 L (12-20) BUN 15 (9-16) mg/dL Creatinine 1.17 (0.5-1.4) mg/dL Estim Creat Clear Calc 84.4 Estimated GFR > 60 Random Glucose 107 (60-115) mg/dL Calcium 8.4 (8.4-10.2) mg/dL Troponin I High Sens (<3.5-35.0) ng/L COVID-19 ([facility]RELLA) Positive A (Negative) COVID-19 Clin Com See Note 09/19/21 09/19/21 Range/Units 19:55 19:58 WBC (4.8-10.8) X10*3/uL RBC (4.60-5.80) X10*6/uL Hgb (14.0-18.0) g/dl Hct (42.0-52.0) % MCV (80.0-98.0) fL MCH (27.0-33.0) pg MCHC (31.0-36.0) g/dl RDW (11.0-16.0) % Plt Count (160-400) X10*3/uL MPV (9.4-12.4) fL Immature Gran % (Auto) (0.0-0.4) % Neut % (Auto) (45-73) % Lymph % (Auto) (20-40) % [place] % (Auto) (2-11) % Eos % (Auto) (0-4) % Baso % (Auto) (0-2) % Lymph # (Auto) (1.2-4.9) X10*3/uL [place] # (Auto) (0.1-1.2) X10*3/uL Eos # (Auto) (0.0-0.4) X10*3/uL Baso # (Auto) (0.0-0.2) X10*3/uL Abs Immat Gran (auto) (0.00-0.03) X10*3/uL Absolute Neuts (auto) (2.0-8.3) x10*3/uL Absolute Nucleated RBC (0.0-0.012) X10*3/uL Nucleated RBC % (auto) (0.0-0.2) /100WBC PT 12.6 (9.9-13.0) SEC INR 1.1 (0.9-1.1) D-Dimer High Sensitivty 501 NG/ML Sodium (135-145) mmol/L Potassium (3.3-5.1) mmol/L Chloride (96-108) mmol/L Carbon Dioxide (22-29) mmol/L Anion Gap (12-20) BUN (9-16) mg/dL Creatinine (0.5-1.4) mg/dL Estim Creat Clear Calc Estimated GFR Random Glucose (60-115) mg/dL Calcium (8.4-10.2) mg/dL Troponin I High Sens 3.6 (<3.5-35.0) ng/L COVID-19 ([facility]RELLA) (Negative) COVID-19 Clin Com Imaging Data Chest x-ray: Attestation: I personally reviewed and interpreted this imaging study as follows: Radiologist's impression: [address] [address] XRay Report Signed Patient: Deepak Cantor MR#: [id number] : 1975 Acct:[id number] Age/Sex: 46 / M ADM Date: 09/19/21 Loc: .ED Attending Dr: Ordering Physician: Generic ED Physician Date of Service: 09/19/21 Procedure(s): XR chest 2V Accession Number(s): [id number] cc: Generic ED Physician~ EXAMINATION: XR CHEST CLINICAL INFORMATION: Cough and shortness of breath COMPARISON: Chest and RIBS 12/20/2018 TECHNIQUE: 2 views of the chest were obtained. FINDINGS: The lungs are mildly hypoinflated with some minimal left basilar atelectasis. No significant abnormality is noted involving the heart, lungs, mediastinum, bony thorax or soft tissues. No pleural effusions are seen. No infiltrates or lung masses. XR/XR chest 2V IMPRESSION: No acute intrathoracic disease CT scan - chest: Attestation: I personally reviewed and interpreted this imaging study as follows: Radiologist's impression: FINDINGS: The heart is normal in size. There is no pericardial effusion. No pulmonary arterial filling defect within the main or segmental pulmonary arteries to suggest pulmonary embolus. Subsegmental pulmonary arteries are suboptimally evaluated secondary to diffuse bilateral airspace disease, however, no gross subsegmental pulmonary emboli is noted. Normal caliber thoracic aorta. No gross mediastinal lymphadenopathy. No enlarged axillary lymph nodes. Central airways are patent. Lungs are mildly hypoinflated. Patchy groundglass opacities are noted bilaterally in a predominantly peripheral distribution. There is no gross lobar consolidation present. No pleural effusion or pneumothorax. Evaluation for pulmonary nodule is suboptimal given background of airspace disease and respiratory motion artifact. Visualized portions of the upper abdomen demonstrate an approximately 2.8 cm gallstone within an otherwise unremarkable appearing gallbladder. No acute osseous abnormalities. CT/CT angio chest PE protocol IMPRESSION: -No pulmonary emboli identified. -Patchy bilateral airspace disease is most consistent with provided history of Covid pneumonia. Cholelithiasis. ? VTE: negative ECG Data Attestation: I personally reviewed and interpreted this ECG as follows: ECG interpretation date: 09/19/21 ECG interpretation time: 19:37 Interpretation: Normal sinus rhythm with a rate of 72, normal RI, normal QRS, normal QT Discharge Plan Discharge Clinical Impression: COVID-19, Pneumonia Patient Disposition: Home, Self-Care Instructions: Pneumonia (ED), COVID-19 (Coronavirus Disease 2019) (ED) Additional Instructions: Cuarentena por 3 d?as m?s. Motrin o tylenol para el dolor o la fiebre. Comience isaac medicamentos ma?moe desde la farmacia. Use el inhalador 2 inhalaciones cada cuatro horas seg?n sea necesario para la tos o sibilancias. Regrese a la mare de emergencias por cada vez m?s dificultad para respirar o dolor en el pecho. Fue remitido para anticuerpos monoclonales. Ellos le llamar?n para concertar la jonas. Prescriptions: No Action cyclobenzaprine 10 mg tablet 10 mg PO TID PRN (Reason: muscle spasm) Qty: 12 0RF lidocaine [Lidoderm] 5 % adhesive patch,medicated 1 patch topical DAILY Qty: 15 0RF Rx Instructions: leave on most painful area for up to 12 hrs ibuprofen 600 mg tablet 600 mg PO Q8H PRN (Reason: pain) Qty: 20 0RF cyclobenzaprine 10 mg tablet 10 mg PO Q8H Qty: 20 0RF tramadol 50 mg tablet 50 mg PO Q6H PRN (Reason: pain) Qty: 20 0RF ibuprofen 600 mg tablet 600 mg PO Q6H PRN (Reason: pain) Qty: 20 0RF Referrals: Physician,Unknown J [Primary Care Provider] - 2 days Stand Alone Forms: Work/School Release Interventions: ED Discharge Assessment Last Done: 09/19/21 21:48 Discharge Date/Time: 09/19/21 21:52 Print Language: Macedonian
[2021-09-19 20:00] LABS: MANUAL DIFF FLAG NO
[2021-09-19 20:02] LABS: Basophils Percent Auto 0.2 % (0-2); Eosinophils Percent Auto 0.2 % (0-4); Hematocrit 46.8 % (42.0-52.0); Hemoglobin 14.9 g/dl (14.0-18.0); Imm Gran Abs Auto 0.01 X10*3/uL (0.00-0.03); Imm Gran Pct Auto 0.2 % (0.0-0.4); Lymphocytes Absolute Auto 1.4 X10*3/uL (1.2-4.9); Lymphocytes Percent Auto 33.3 % (20-40); Mean Corpuscular HGB Conc 31.8 g/dl (31.0-36.0); Mean Corpuscular Hemoglobin 27.5 pg (27.0-33.0); Mean Corpuscular Volume 86.5 fL (80.0-98.0); Mean Platelet Volume 9.8 fL (9.4-12.4); Monocytes Absolute Auto 0.3 X10*3/uL (0.1-1.2); Monocytes Percent Auto 8.1 % (2-11); Neutrophils Absolute Auto 2.4 x10*3/uL (2.0-8.3); Platelet Count 167 X10*3/uL (160-400); Red Blood Count 5.41 X10*6/uL (4.60-5.80); Red Cell Distribution Width 11.7 % (11.0-16.0); White Blood Count 4.1 X10*3/uL (4.8-10.8)
[2021-09-19 20:09] LABS: INTERNATIONAL NORM RATIO 1.1 (0.9-1.1); Prothrombin Time 12.6 SEC (9.9-13.0)
[2021-09-19 20:11] LABS: COVID-19 Test Positive (Negative); D Dimer High Sensitivity 501 NG/ML
[2021-09-19 20:18] LABS: Anion Gap 10 (12-20); Calcium 8.4 mg/dL (8.4-10.2); Carbon Dioxide 27 mmol/L (22-29); Chloride 105 mmol/L (96-108); Creatinine Clr Calc Pharmacy 84.4; Estimated Glomerular Filt Rate > 60; Glucose Random 107 mg/dL (60-115); Potassium 4.3 mmol/L (3.3-5.1); Sodium 138 mmol/L (135-145)
[2021-09-19 20:29] LABS: Blood Urea Nitrogen 15 mg/dL (9-16)
[2021-09-19] MEDS: iohexoL 350 MG/ML 100 ML INFUS..BTL IV (20:46)
[2021-09-19] MEDS: Albuterol Sulfate 90 MCG 8 GM INHALER 2 PUFF INHALE (21:09)
[2021-09-19 21:12] LABS: Troponin-I High Sensitivity 3.6 ng/L (<3.5-35.0)
[2021-09-19] MEDS: predniSONE 20 MG TABLET 60 MG PO (21:41)
[2021-09-19] MEDS: Azithromycin 500 MG TABLET PO (21:41)
== END 2021-09-19 21:52 | disposition home or self-care (01) ==
PROVIDERS: Nurse Practitioner Family; Emergency Provider Emergency Medicine
DX: U07.1 COVID-19 (principal); J12.82 Pneumonia due to coronavirus disease 2019
CPT/HCPCS: 36415; 71046; 71275; 80048; 84484; 85025; 85379; 85610; 87635; 93005; 99284; Q9967

== ENCOUNTER 2021-09-24 16:05 | Emergency (ER) | payer MEDICAID, SELFPAY ==
--- NOTE | ~2021-09-24 | XR_ITS ---
EXAMINATION: XR CHEST CLINICAL INFORMATION: Cough. Covid positive. COMPARISON: Previous chest x-ray and chest CTA 09/19/2021 TECHNIQUE: Frontal view of the chest was obtained. FINDINGS: The cardiac and mediastinal contours are stable. The lung volumes are low. There are increasing bilateral infiltrates. There is no pleural effusion or pneumothorax. Bony structures are unremarkable. XR/XR chest 1V IMPRESSION: Low lung volumes and increasing bilateral infiltrates.
[2021-09-24 16:14] VITALS: BP 126/75; PULSE 93; RESP 18; TEMP 36.8; O2SAT 97; BMI 25.8
[2021-09-24 16:24] VITALS: BP 125/72; PULSE 92; RESP 18; O2SAT 96
--- NOTE | 2021-09-24 17:06 | ED.GENADULT ---
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 Patient tells me he was seen here on September 19 and diagnosed with COVID. He had a workup including a CTA that was negative for pulmonary embolism. He was noted to have bilateral airspace opacities and he was discharged home with an albuterol inhaler, 5 days of azithromycin and 5 days of prednisone. Patient was also given a referral for monoclonal antibodies due to obesity. He received sotrivimab on September 22. He completed his prednisone antibiotics yesterday but continues to feel short of breath with a continued cough. No chest pain, no fever, no leg swelling or pain. Related Data Previous Rx's Medication Instructions Recorded cyclobenzaprine 10 mg tablet 10 mg PO TID PRN #12 tab 12/12/20 ibuprofen 600 mg tablet 600 mg PO Q8H PRN #20 tab 12/12/20 lidocaine 5 % topical patch 1 patch TOPICAL DAILY #15 ea 12/12/20 (Lidoderm) cyclobenzaprine 10 mg tablet 10 mg PO Q8H #20 tab 01/15/21 tramadol 50 mg tablet 50 mg PO Q6H PRN #20 tab 01/15/21 ibuprofen 600 mg tablet 600 mg PO Q6H PRN #20 tab 03/31/21 albuterol sulfate 90 mcg/actuation 1 inh INHALATION QID PRN #6.7 g 09/20/21 aerosol inhaler azithromycin 250 mg tablet See Rx Instructions .ROUTE 09/20/21 (Zithromax Z-Michael) .COMPLEX #6 tab prednisone 20 mg tablet 40 mg PO DAILY #10 tab 09/20/21 doxycycline monohydrate 100 mg 100 mg PO BID #20 cap 09/24/21 capsule hydrocodone-homatropine 5 mg-1.5 5 ml PO Q4H PRN #120 ml 09/24/21 mg/5 mL oral syrup (Hycodan (with homatropine)) prednisone 20 mg tablet 40 mg PO DAILY #10 tab 09/24/21 Allergies Allergy/AdvReac Type Severity Reaction Status Date / Time No Known Allergies Allergy Mild NOT Verified 05/04/21 09:13 APPLICABLE Review of Systems Review of Systems: Yes all other systems are reviewed and are negative Constitutional: Constitutional: Reports no additional constitutional complaints, Denies body ache(s), Denies chills, Denies fever(s), Denies headache(s) and Denies weakness Eyes: Eyes: Reports no additional eye complaints and Denies change in vision ENT: Reports system reviewed and no additional complaints, except as documented, Denies dizziness, Denies headache(s), Denies nasal congestion, Denies nasal discharge and Denies neck pain Cardiovascular: Cardiovascular: Reports no additional cardiovascular complaints, Denies chest pain, Denies leg edema and Reports dyspnea Respiratory: Respiratory: Reports no additional respiratory complaints, Reports cough and Reports dyspnea Gastrointestinal: Gastrointestinal: Reports no additional gastrointestinal complaints, Denies abdominal pain, Denies diarrhea, Denies nausea and Denies vomiting Genitourinary: Genitourinary: Denies urinary incontinence Musculoskeletal: Musculoskeletal: Reports no additional musculoskeletal complaints, Denies back pain, Denies arthralgias, Denies joint swelling, Denies neck pain, Denies numbness and Denies tingling Integumentary/Breasts: Skin/Breast: Reports system reviewed and no additional complaints, except as docu and Denies rash Neurologic: Reports system reviewed and no additional complaints, except as documented, Denies Abnormal speech present, Denies dizziness, Denies headache(s), Denies numbness, Denies tingling and Denies weakness PMFSH Past Medical History Attestation statement: The following information was validated with the patient. 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 Physical Exam ED Vital Signs: Vital Signs - 24 hr 09/24/21 16:14 09/24/21 16:24 Temperature 98.3 F Pulse Rate 93 92 Respiratory Rate 18 18 Blood Pressure 126/75 125/72 Pulse Oximetry 97 96 BMI result Body Mass Index 25.8 Const General: cooperative, healthy appearing, comfortable and no acute distress Orientation/consciousness: patient oriented x3 Limitations: no limitations HENMT Head: Yes normal to inspection Ears: hearing grossly normal bilaterally and TM's normal bilaterally General nose exam: Normal external nose present Face and sinus: Yes normal facial exam Mouth: Normal oral and palatal mucosa present Throat: Yes posterior oropharynx normal and Yes tonsils normal Neck Neck: Yes normal visual inspection, Yes full ROM and Yes no lymphadenopathy Chest Chest palpation & inspection: normal inspection of the chest Resp Effort & Inspection: normal respiratory effort Auscultation: clear to auscultation bilaterally Cardio Rate: regular rate Rhythm: regular rhythm Peripheral pulses: Peripheral pulses 2+ throughout GI Inspection: Yes normal to inspection Palpation (GI): Soft to palpation and nontender General: Yes no CVA tenderness Back/Spine/Pelvis Back: no CVA tenderness Thoracic/Lumbar Spine: thoracic and lumbar spine normal to inspection Skin General skin exam: no rashes or lesions noted Neuro General: patient oriented x3 Cranial nerves: Yes CN's II-XII intact bilaterally, Yes Bilaterally intact EOM present, Yes Nystagmus not present, Yes Normal facial strength present and Yes Midline tongue present Cognition (Neuro): normal cognition Speech: No Abnormal speech present Gait exam (Neuro): Normal gait present Motor exam (neuro): 5/5 motor strength present throughout Sensory Exam: Normal double simultaneous stimulation for sensation Extrem General: Yes normal to inspection, Yes no pedal edema and Yes no calf tenderness Course Course Course Narrative: 46-year-old male here with continued cough and shortness of breath after testing positive for COVID on September 19. Patient has been treated with oral azithromycin, oral prednisone, albuterol MDI and also received monoclonal antibodies. He completed his medications yesterday but continues to feel symptomatic. On arrival the patient is speaking full sentences. His lungs are clear throughout. His vitals are stable. His oxygen saturation is 96% on room air. He was ambulated by nursing and his oxygen saturation was greater than 95% the entire time. Is chest x-ray shows continued bilateral airspace opacities. Patient had a CTA 4 days ago that was negative for pulmonary embolism. I do not believe that he needs a repeat CTA. I did explain to the patient that he may continue to experience shortness of breath for several weeks post COVID. In addition his chest x-ray will take time to show resolution of disease. He does report he feels better when he uses inhaler. Will repeat course prednisone, antibiotics. Recommend continued use of albuterol, will give cough suppressant additionally. Recommend patient purchase a pulse oximeter to monitor his oxygen saturation at home. Medical Decision Making Medical Records Medical records reviewed: Yes I reviewed the patient's medical records. Lab Data Lab results reviewed: Yes I reviewed the patient's lab results. Imaging Data Chest x-ray: Attestation: I personally reviewed and interpreted this imaging study as follows: Radiologist's impression: [address] [address] XRay Report Signed Patient: Deepak Cantor MR#: [id number] : 1975 Acct:[id number] Age/Sex: 46 / M ADM Date: 09/24/21 Loc: HO.ED Attending Dr: Ordering Physician: Generic ED Physician Date of Service: 09/24/21 Procedure(s): XR chest 1V Accession Number(s): [id number] cc: Generic ED Physician~ EXAMINATION: XR CHEST CLINICAL INFORMATION: Cough. Covid positive. COMPARISON: Previous chest x-ray and chest CTA 09/19/2021 TECHNIQUE: Frontal view of the chest was obtained. FINDINGS: The cardiac and mediastinal contours are stable. The lung volumes are low. There are increasing bilateral infiltrates. There is no pleural effusion or pneumothorax. Bony structures are unremarkable. XR/XR chest 1V IMPRESSION: Low lung volumes and increasing bilateral infiltrates. ? Discharge Plan Discharge Clinical Impression: COVID-19 Patient Disposition: Home, Self-Care Instructions: COVID-19 (Coronavirus Disease 2019) (ED) Additional Instructions: Comience el nuevo antibi?leif y esteroides. Contin?e con pastrana inhalador Use el medicamento para la tos seg?n sea necesario Considere comprar un ox?metro de pulso para monitorear los niveles de ox?matthew en el hogar. Retorno para niveles de saturaci?n de ox?matthew inferiores al 90% Seguimiento con pastrana m?dico de atenci?n primaria seg?n sea necesario Prescriptions: New prednisone 20 mg tablet 40 mg PO DAILY Qty: 10 0RF doxycycline monohydrate 100 mg capsule 100 mg PO BID Qty: 20 0RF hydrocodone-homatropine [Hycodan (with homatropine)] 5-1.5 mg/5 mL syrup 5 ml PO Q4H PRN (Reason: cough) Qty: 120 0RF No Action cyclobenzaprine 10 mg tablet 10 mg PO TID PRN (Reason: muscle spasm) Qty: 12 0RF lidocaine [Lidoderm] 5 % adhesive patch,medicated 1 patch topical DAILY Qty: 15 0RF Rx Instructions: leave on most painful area for up to 12 hrs ibuprofen 600 mg tablet 600 mg PO Q8H PRN (Reason: pain) Qty: 20 0RF cyclobenzaprine 10 mg tablet 10 mg PO Q8H Qty: 20 0RF tramadol 50 mg tablet 50 mg PO Q6H PRN (Reason: pain) Qty: 20 0RF ibuprofen 600 mg tablet 600 mg PO Q6H PRN (Reason: pain) Qty: 20 0RF prednisone 20 mg tablet 40 mg PO DAILY Qty: 10 0RF azithromycin [Zithromax Z-Michael] 250 mg tablet See Rx Instructions .ROUTE .COMPLEX Qty: 6 0RF Rx Instructions: take 500 mg today (day 1), then 250 mg for 4 days (days 2-5) albuterol sulfate 90 mcg/actuation HFA aerosol inhaler 1 inh inhalation QID PRN (Reason: shortness of breath or wheezing) Qty: 6.7 0RF Referrals: [facility] [Primary Care Provider] - 1 week Print Language: Citizen Of [place]
--- NOTE | 2021-09-24 17:06 | PC.NURSE ---
AMBULATED IN [address] APO2 95, HR 95-110.
== END 2021-09-24 17:38 | disposition home or self-care (01) ==
PROVIDERS: Emergency Provider Emergency Medicine
DX: U07.1 COVID-19 (principal); R06.02 Shortness of breath
CPT/HCPCS: 71045; 99283

== ENCOUNTER 2021-10-04 11:36 | Outpatient (REF) | payer MEDICAID, SELFPAY ==
--- NOTE | ~2021-10-04 | XR_ITS ---
EXAMINATION: XR CHEST CLINICAL INFORMATION: Cough. COMPARISON: 09/24/2021 chest radiograph. TECHNIQUE: 2 views of the chest were obtained. FINDINGS: Low lung volumes limit evaluation. Persistent mild linear opacities are seen in the mid and lower lung steiner with mild interval decrease. There are no pleural effusions. The heart and mediastinal structures are unremarkable. XR/XR chest 2V IMPRESSION: Persistent mild linear opacities bilaterally appear mildly decreased. This suggests an improving infectious/inflammatory process.
== END 2021-10-04 11:37 | disposition home or self-care (01) ==
LOC: HO.XRAY 11:36
PROVIDERS: Absent Provider Internal Medicine; PCP Internal Medicine; Visit Provider Emergency Medicine
DX: R05.9 Cough, unspecified (principal)
CPT/HCPCS: 71046

== ENCOUNTER 2023-03-27 09:47 | Outpatient (REF) | payer MEDICAID, SELFPAY ==
[2023-03-27 14:17] LABS: MANUAL DIFF FLAG NO
[2023-03-27 14:25] LABS: Basophils Percent Auto 0.2 % (0-2); Eosinophils Absolute Auto 0.1 X10*3/uL (0.0-0.4); Eosinophils Percent Auto 1.1 % (0-4); Hematocrit 45.2 % (42.0-52.0); Hemoglobin 14.1 g/dl (14.0-18.0); Lymphocytes Absolute Auto 2.4 X10*3/uL (1.2-4.9); Mean Corpuscular HGB Conc 31.2 g/dl (31.0-36.0); Mean Corpuscular Hemoglobin 27.6 pg (27.0-33.0); Mean Corpuscular Volume 88.6 fL (80.0-98.0); Mean Platelet Volume 10.3 fL (9.4-12.4); Monocytes Absolute Auto 0.4 X10*3/uL (0.1-1.2); Monocytes Percent Auto 7.2 % (2-11); Neutrophils Absolute Auto 2.5 x10*3/uL (2.0-8.3); Neutrophils Percent Auto 46.5 % (45-73); Platelet Count 221 X10*3/uL (160-400); White Blood Count 5.3 X10*3/uL (4.8-10.8)
[2023-03-27 14:58] LABS: Alanine Aminotransferase 25 U/L (0-40); Alkaline Phosphatase 64 U/L (39-117); Anion Gap 11 (12-20); Aspartate Amino Transferase 27 U/L (5-37); Bilirubin Direct 0.3 mg/dL (0.0-0.5); Bilirubin Total 0.9 mg/dL (0.0-1.0); Blood Urea Nitrogen 20 mg/dL (9-16); Calcium 8.9 mg/dL (8.4-10.2); Carbon Dioxide 25 mmol/L (22-29); Chloride 110 mmol/L (96-108); Cholesterol 133 mg/dL; Estimated Glomerular Filt Rate > 60; Glucose Fasting 92 mg/dL (60-99); HDL Cholesterol 41 mg/dL; LDL Cholesterol Calculated 74 mg/dl; Sodium 142 mmol/L (135-145); Total Protein 7.2 g/dL (6.5-8.0); Triglycerides 90 mg/dL
== END 2023-03-27 09:48 | disposition home or self-care (01) ==
LOC: HO.CHCLDS 09:47
PROVIDERS: Visit Provider Internal Medicine
DX: K64.9 Unspecified hemorrhoids (principal); K59.04 Chronic idiopathic constipation
CPT/HCPCS: 36415; 80048; 80061; 80076; 84443; 85025

== ENCOUNTER 2023-04-17 09:19 | Outpatient (AMB) | payer MEDICAID, SELFPAY ==
[2023-04-17 09:22] VITALS: BP 125/74; PULSE 80; BMI 36.0
--- NOTE | 2023-04-17 09:22 | A.OFFVIS_ITS ---
Intake Vital Signs 3 04/17/23 09:22 Height 5 ft 6 in Weight 223 lb BMI 36.0 BP 125/74 Blood Pressure Location Rt brachial Position Sitting Pulse 80 Intake Visit Reasons: Abdominal wall hernia Intake Note: Patient referred for lower abd hernia. Has been present since 2009. Patient states scar along abd was for exp laparatomy in 1991. Incision got infected with pus and was told developed allergy to sutures. Denies pain or discomfort just does not like the way it protrudes. 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 He reports undergoing an exploratory laparotomy in 1991 although he is uncertain why he underwent this procedure. Subsequently developed an incisional hernia which was repaired by Dr. Serra in 2009. Reports developing an infection postoperatively and now has developed a new opening just below the umbilicus along the midline incision. He denies any abdominal pain, nausea, vomiting, fever or chills. He is now requesting repair of this incisional hernia. 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 Review of Systems Const All systems reviewed & are unremarkable except as noted in HPI and below Denies chills, Denies fever(s), Denies headache(s), Denies poor appetite and Denies weakness ENT Denies headache(s) Card Denies chest pain, Denies irregular heart rhythm, Denies palpitations and Denies dyspnea Resp Denies cough, Denies excessive phlegm production and Denies dyspnea GI Denies abdominal pain, Denies bloating, Denies change in bowel habits, Denies constipation, Denies heartburn, Denies diarrhea, Denies nausea and Denies vomiting Denies difficulty urinating and Denies urinary frequency Musc Denies back pain, Denies muscle weakness and Denies numbness Skin/Breast Denies changing lesions and Denies unusual bruising Neuro Denies headache(s), Denies numbness, Denies paresthesias and Denies weakness Psych Denies anxiety and Denies depression Endo Denies palpitations Kamran/Lymph Denies lymphadenopathy Physical Exam Vital Signs: Last Vital Signs Pulse 80 04/17/23 09:22 BP 125/74 04/17/23 09:22 BMI result Body Mass Index 36.0 Const General: cooperative and no acute distress Nutritional Appearance: well nourished Orientation/consciousness: patient oriented x3 Limitations: no limitations HEENT Head: Yes normocephalic and Yes atraumatic Ears: hearing grossly normal bilaterally Resp Effort & Inspection: normal respiratory effort, no audible wheezes, no cough and no respiratory distress Cardio Jugular venous distension: no JVD GI Inspection: Yes normal to inspection and Yes Abdominal panniculus present Palpation (GI): Soft to palpation, nontender, no guarding and not rigid Abdomen image: 2 1. Large midline incision with thick scar 2. Site of incisional hernia Skin Other: Warm, dry, no rash Neuro General: patient oriented x3 Extrem General: Yes no clubbing, cyanosis or edema Assessment & Plan Assessment & Plan (1) Incisional hernia: Code(s): K43.2 - Incisional hernia without obstruction or gangrene Qualifiers: Obstruction and gangrene presence: without obstruction or gangrene Qualified Code(s): K43.2 - Incisional hernia without obstruction or gangrene Plan 47-year-old male patient presenting with a midline incisional hernia from a prior exploratory laparotomy. He is requested repair of this incisional hernia and after discussion of the procedure, risks, and alternatives, consents to repair the incisional hernia with mesh. Coding Level of Care Code New Pt Level 4 (36703) Diagnoses Incisional hernia, without obstruction or gangrene K43.2 Obstruction and gangrene presence: without obstruction or gangrene
== END 2023-04-17 09:46 | disposition home or self-care (01) ==
PROVIDERS: PCP Internal Medicine; Referring Provider Internal Medicine; Visit Provider Surgery
DX: K43.2 Incisional hernia without obstruction or gangrene (principal)
CPT/HCPCS: 99204

== ENCOUNTER → 2023-04-17 09:19 | Outpatient (BNVA) | payer MEDICAID, SELFPAY | PROVIDERS: PCP Internal Medicine; Referring Provider Internal Medicine; Visit Provider Surgery ==

== ENCOUNTER 2023-07-22 14:15 | Outpatient (AMB) | payer MEDICAID, SELFPAY ==
--- NOTE | 2023-07-22 14:17 | A.OFFVIS_ITS ---
Intake Vital Signs 3 07/22/23 14:30 Height 5 ft 6 in Weight 220 lb 6 oz BMI 35.6 BP 122/82 Blood Pressure Location Lt brachial Position Sitting Pulse 72 Intake Visit Reasons: Recheck abd wall hernia Intake Note: Patient is seen in office for evaluation and treatment of an abdominal wall hernia. 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 He reports undergoing an exploratory laparotomy in 1991 although he is uncertain why he underwent this procedure. Subsequently developed an incisional hernia which was repaired by Dr. Serra in 2009. Reports developing an infection postoperatively and now has developed a new opening just below the umbilicus along the midline incision. He denies any abdominal pain, nausea, vomiting, fever or chills. He is now requesting repair of this incisional hernia. 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 Review of Systems Const All systems reviewed & are unremarkable except as noted in HPI and below Denies chills, Denies fever(s), Denies headache(s), Denies poor appetite and Denies weakness ENT Denies headache(s) Card Denies chest pain, Denies irregular heart rhythm, Denies palpitations and Denies dyspnea Resp Denies cough, Denies excessive phlegm production and Denies dyspnea GI Denies abdominal pain, Denies bloating, Denies change in bowel habits, Denies constipation, Denies heartburn, Denies diarrhea, Denies nausea and Denies vomiting Denies difficulty urinating and Denies urinary frequency Musc Denies back pain, Denies muscle weakness and Denies numbness Skin/Breast Denies changing lesions and Denies unusual bruising Neuro Denies headache(s), Denies numbness, Denies paresthesias and Denies weakness Psych Denies anxiety and Denies depression Endo Denies palpitations Kamran/Lymph Denies lymphadenopathy Physical Exam Const General: cooperative and no acute distress Nutritional Appearance: well nourished Orientation/consciousness: patient oriented x3 Limitations: no limitations HEENT Head: Yes normocephalic and Yes atraumatic Ears: hearing grossly normal bilaterally Resp Effort & Inspection: normal respiratory effort, no audible wheezes, no cough and no respiratory distress Cardio Jugular venous distension: no JVD GI Inspection: Yes normal to inspection and Yes Abdominal panniculus present Palpation (GI): Soft to palpation, nontender, no guarding and not rigid Abdomen image: 2 1. Previous wide incision in midline 2. Hernia to the right of midline below umbilicus Skin Other: Warm, dry, no rash Neuro General: patient oriented x3 Extrem General: Yes no clubbing, cyanosis or edema Assessment & Plan Assessment & Plan (1) Incisional hernia: Code(s): K43.2 - Incisional hernia without obstruction or gangrene Qualifiers: Obstruction and gangrene presence: without obstruction or gangrene Qualified Code(s): K43.2 - Incisional hernia without obstruction or gangrene Plan 47-year-old male patient presenting with a midline incisional hernia from a prior exploratory laparotomy. He is requested repair of this incisional hernia and after discussion of the procedure, risks, and alternatives, consents to repair the incisional hernia with mesh. This will be scheduled as a short-stay surgery under general anesthesia. Coding Level of Care Code Est Pt Level 4 (50429) Diagnoses Incisional hernia, without obstruction or gangrene K43.2 Obstruction and gangrene presence: without obstruction or gangrene
[2023-07-22 14:30] VITALS: BP 122/82; PULSE 72; BMI 35.6
== END 2023-07-22 14:40 | disposition home or self-care (01) ==
PROVIDERS: PCP Internal Medicine; Visit Provider Surgery
DX: K43.2 Incisional hernia without obstruction or gangrene (principal)
CPT/HCPCS: 99214

== ENCOUNTER → 2023-07-22 14:15 | Outpatient (BNVA) | payer MEDICAID, SELFPAY | PROVIDERS: PCP Internal Medicine; Visit Provider Surgery | DX: K43.2 Incisional hernia without obstruction or gangrene (principal) | CPT/HCPCS: 99212 ==

== ENCOUNTER 2023-08-27 13:33 | Outpatient (REF) | payer MEDICAID, SELFPAY ==
[2023-08-27 15:23] LABS: Influenza A PCR NEGATIVE (Negative); Influenza B PCR NEGATIVE (Negative); Resp Syncy Virus RNA Qual PCR NEGATIVE (Negative); SARS COV2 PCR INHOUSE NEGATIVE (Negative)
== END 2023-08-27 13:34 | disposition home or self-care (01) ==
LOC: HO.CHCLNP 13:33
PROVIDERS: Visit Provider Internal Medicine
DX: Z11.52 Encounter for screening for COVID-19 (principal); J06.9 Acute upper respiratory infection, unspecified
CPT/HCPCS: 0241U

== ENCOUNTER 2023-09-08 09:30 | Day surgery (SDC) | payer MEDICAID, SELFPAY ==
--- NOTE | 2023-09-05 09:54 | P.CONAN_ITS ---
Documented by User: Angeline Malik NP 09/05/23 09:54 HPI - Anesthesia Eval Consult details Narrative: 48yo M for Recurrent Hernia Incisional Reducible with mesh PMFSH Active Problems Active Problems: All Active Problems (Updated 08/08/23 @ 08:51 by Esther Torres RN) Incisional hernia (Acute) COVID-19 (Acute) Strain of right gastrocnemius muscle (Acute) Right ankle sprain (Acute) Marijuana intoxication (Acute) Past Medical History Medical History Depression Insomnia Anxiety Surgical History Surgical History History of surgery (12/16/14) History of exploratory laparotomy (1991) Social History Social History Alcohol intake: current Alcohol intake frequency: holidays/special occasions only Alcohol type: beer Patient Tobacco Use Status: Never used Tobacco Advance Directives: No Advance Directives Information Provided: Yes Current occupational status: employed 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 Allergies Allergy/AdvReac Type Severity Reaction Status Date / Time Sutures Allergy Mild Irritable Verified 09/08/23 10:02 Home Medications Medication Instructions Recorded Confirmed Last Taken Type diphenhydramine HCl 25 mg capsule 25 mg PO BEDTIME PRN cough 09/05/23 09/08/23 Unknown History (Banophen) mirtazapine 7.5 mg tablet 7.5 mg PO BEDTIME 09/05/23 09/08/23 Unknown History Exam Pertinent Lab Results Pertinent Lab Results: Laboratory Tests 03/27/23 09:55 WBC 5.3 Hgb 14.1 Hct 45.2 Plt Count 221 D Sodium 142 Potassium 4.0 Chloride 110 H Carbon Dioxide 25 BUN 20 H Creatinine 1.10 Assessment and Plan Assessment Anesthesia Assessment: Chart Reviewed Documented by User: Sakshi Valverde MD 09/08/23 10:09 [facility] Past Medical History Medical History Depression Insomnia Anxiety Family History Family history of problems with anesthesia: No Surgical History Surgical History History of surgery (12/16/14) History of exploratory laparotomy (1991) History of Problems with Anesthesia: No Social History Social History Alcohol intake: current Alcohol intake frequency: holidays/special occasions only Alcohol type: beer Patient Tobacco Use Status: Never used Tobacco Advance Directives: No Advance Directives Information Provided: Yes Current occupational status: employed 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 Allergy/AdvReac Type Severity Reaction Status Date / Time Sutures Allergy Mild Irritable Verified 09/08/23 10:02 Home Medications Medication Instructions Recorded Confirmed Last Taken Type diphenhydramine HCl 25 mg capsule 25 mg PO BEDTIME PRN cough 09/05/23 09/08/23 Unknown History (Banophen) mirtazapine 7.5 mg tablet 7.5 mg PO BEDTIME 09/05/23 09/08/23 Unknown History Exam Airway Mallampati Class: III TM Dist: >3cm Neck ROM: Full Heart: rrr Lungs: cta Assessment and Plan Assessment Anesthesia Assessment: Anesthesia Plan Discussed Final Anesthetic Review Family History of Problems with Anesthesia: No History of Problems with Anesthesia: No NPO: Yes ASA Class: III (heavy marihuana use) Final Preanesthetic Review: No Changes in Pt Med Stat, Meds/Allgs Chart Reviewed, Consent Obtained/Reviewed and Anes Risks/Benef Reviewed Patient Risk: Intermediate Procedure Risk: Low Anesthetic Plan Anesthetic Plan: GA Disposition: Standard PACU
[2023-09-08] VITALS (8 sets, daily range): BP systolic 118–135; BP diastolic 76–92; PULSE 58–76; RESP 16–18; TEMP 36.3–36.8; O2SAT 94–98; BMI 36.4
[2023-09-08] MEDS: Lactated Ringers 1,000 ML 100 ML IVCONT (10:24)
--- NOTE | 2023-09-08 10:25 | MHC.SHP ---
Pre-Procedural Eval Section A - 24 Hr Update-Section A only Date of Service: 09/08/23 The patient is an INPATIENT: No Changes since office visit: Yes Patient answered all questions; No Cold of Flu in the past 2 weeks, No New Medical Problems and No Changes in Medication The patient has been examined within 24 hours of the surgical procedure. The History & Physical has been completed within 30 days and I have reviewed it.: No Section B - Complete if H&P > 30 days Chief Complaint: Incisional hernia without obstruction or gangrene Details of Present Illness: No change in patient's symptoms since last evaluation. Relevant Family History (Specify if Yes): No Relevant Social History: None Present Medications: see Short Stay Collaborative assessment Medical History: No relevant PMH History of Previous Operations: Relevant previous surgery/procedure and date(s) (Previous abdominal wall infections) Allergies: Allergies Allergy/AdvReac Type Severity Reaction Status Date / Time Sutures Allergy Mild Irritable Verified 09/08/23 10:02 Review of Systems Sugical H&P ROS: Negative: Constitution, Cardiovascular, Respiratory, Neurological, Psychiatric, Hem-Onc, Allergic/Immunologic, Gastrointestinal, Genitourinary, Musculoskeletal, Integumentary, Endocrine and Eyes/Ears/Nose/Throat Exam Surgical H&P Exam: Normal: HEENT, Normal: Heart, Normal: Lungs, Normal: Extremities, Normal: Abdomen, Normal: Skin and Normal: Neurological Plan Diagnosis/Plan: Unchanged I have reviewed the history and physical and performed a pertinent physical examination on my patient. No changes have occurred unless specified. Time Spent With Patient Time: Total time managing care of this patient today ____ minutes.
--- NOTE | 2023-09-08 10:55 | P.OP_ITS ---
Operative Note Operative Note Date of Service: 09/08/23 Narrative: Preoperative diagnosis: Incisional hernia, midline thick scar Postoperative diagnosis: Same Procedure: Repair of incisional hernia with mesh, revision of midline scar Surgeon: Luis Schwab MD Business Development Sales Executive: Francisca Jo PA-C, NADYA Conde Anesthesia: General LMA Indications for procedure: 48-year-old male patient presenting with a previous midline incision with prior infections now with a wide scar and a moderate size incisional hernia measuring approximately 2 cm, reducible. Operative findings: Reducible 2 cm incisional hernia at the umbilicus with a thick scar. Specimen: Midline scar, hernia sac Estimated blood loss: 10 mL Complications: None Procedure details: Patient was brought to the OR placed in a supine position. After administering general anesthesia, the patient's abdomen was prepped with ChloraPrep and draped in a sterile fashion. A surgical time-out was called the consent confirmed. Patient received preoperative antibiotics and Venodyne boots were in place. Local anesthesia was infiltrate in the midline and around the umbilical hernia. Incision was made from just below the umbilicus in a curvilinear fashion continued up along the midline in elliptical fashion to include the midline scar which measured approximately 15 x 2 cm. The incision was then carried down through the subcutaneous tissue. The scar tissue was excised and sent to pathology for further examination. Umbilical skin was then lifted off the midline fascia using electrocautery. A large hernia was identified and dissected free from the surrounding subcutaneous tissue. The her abel sac was then dissected down to the fascial edge. The sac was entered and the contents reduced into the abdominal cavity. Redundant sac was then excised. A preperitoneal space was then created using electrocautery and sharp dissection. Hemostasis was assured at all times using electrocautery. A 6.4 cm round Ventralex mesh was then obtained. This was secured to the fascia using a parachute technique securing the mesh in 4 quadrants with a 1 Tycron suture and then tying off all 4 sutures. The fascia was then closed over the mesh using [id number] 1 Tycron sutures. Wounds were then irrigated with Betadine soaked saline solution and suctioned dry. Wounds were again checked for hemostasis. Umbilical skin was then attached to the fascia using a 3-0 Polysorb suture. Dermis was reapproximated using interrupted 3-0 Polysorb sutures. Skin was then closed in the midline using a running subcuticular 4-0 Polysorb suture. Wounds were dressed with Steri-Strips, 4 x 4 gauze and Tegaderm. Patient tolerated the procedure well. Sponge, instrument, and needle counts reported as correct. The patient was transferred to PACU in stable condition.
[2023-09-08] MEDS: oxyCODONE HCl Immed Release 5 MG TABLET PO (12:40)
== END 2023-09-08 14:00 | disposition home or self-care (01) ==
PROVIDERS: PCP Internal Medicine; Visit Provider Surgery
PROC: (CPT 49591; principal; 2023-09-08 11:20)
DX: K43.2 Incisional hernia without obstruction or gangrene (principal); L91.0 Hypertrophic scar; Z98.890 Other specified postprocedural states
CPT/HCPCS: 49591; 11406; 88302; 88304; 88307; C1781; C9088; J0131; J0690; J2250; J2704; J2795; J3010

== ENCOUNTER → 2023-09-08 09:30 | Outpatient (BNV) | payer MEDICAID, SELFPAY | PROVIDERS: PCP Internal Medicine; Visit Provider Surgery | DX: K43.2 Incisional hernia without obstruction or gangrene (principal) | CPT/HCPCS: 49591 ==

== ENCOUNTER 2023-09-18 13:45 | Outpatient (AMB) | payer MEDICAID, SELFPAY ==
[2023-09-18 13:53] VITALS: BP 120/71; PULSE 75; BMI 36.2
--- NOTE | 2023-09-18 13:53 | A.OFFVIS_ITS ---
Intake Vital Signs 3 09/18/23 13:53 Height 5 ft 6 in Weight 224 lb 4 oz BMI 36.2 BP 120/71 Blood Pressure Location Lt brachial Position Sitting Pulse 75 Intake Visit Reasons: S/P recurrent incisional hernia w/mesh Intake Note: Patient is seen in office for post op assessment post incisional hernia repair. Pt c/o: minimal pain in the area, denies redness, swelling or other concerns Op:09/08/23 Conveyor Technician Required: Yes Conveyor Technician Language: Hand Therapist Name: Angeline MENDEZ Information Interpreted: non-clinical & clinical Digital Photo Printer: Digital Photo Printer Present Accompanied by: Self / Same As Patient Allergies Sutures Allergy (Mild, Verified 09/18/23 13:55) Irritable Medication List - Last Reconciled 09/18/23 by Luis Schwab MD diphenhydramine HCl (Banophen) 25 mg PO BEDTIME PRN mirtazapine 7.5 mg PO BEDTIME HPI HPI Comments 2 History of Present Illness0 Details 48-year-old male patient status post rep air of an incisional hernia and excision of a wide scar in the midline abdomen on 09/08/2023. He returns for his postoperative visit. He reports some hardness near the umbilicus but generally feels well. He denies any nausea, vomiting, fever or chills. 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 There is no evidence of wound infection or hernia recurrence. Abdomen image: 2 1. Site of scar revision, wounds clean and intact Skin Other: Warm, dry, no rash Neuro General: patient oriented x3 Assessment & Plan Assessment & Plan (1) Incisional hernia: Code(s): K43.2 - Incisional hernia without obstruction or gangrene Qualifiers: Obstruction and gangrene presence: without obstruction or gangrene Qualified Code(s): K43.2 - Incisional hernia without obstruction or gangrene Plan Patient returns 1 week following repair of an incisional hernia with mesh. He tolerated the procedure well and his wounds are healing nicely. He should continue to avoid lifting greater than 10 lb and return approximately 4 weeks for wound examination. Coding Level of Care Code Global (14930) Diagnoses Incisional hernia, without obstruction or gangrene K43.2 Obstruction and gangrene presence: without obstruction or gangrene
== END 2023-09-18 14:04 | disposition home or self-care (01) ==
PROVIDERS: PCP Internal Medicine; Visit Provider Surgery
DX: K43.2 Incisional hernia without obstruction or gangrene (principal)
CPT/HCPCS: 99212

== ENCOUNTER → 2023-09-18 13:45 | Outpatient (BNVA) | payer MEDICAID, SELFPAY | PROVIDERS: PCP Internal Medicine; Visit Provider Surgery | DX: Z48.815 Encounter for surgical aftercare following surgery on the digestive system (principal); Z98.890 Other specified postprocedural states | CPT/HCPCS: 99212 ==

== ENCOUNTER 2023-09-26 09:04 | Outpatient (AMB) | payer MEDICAID, SELFPAY ==
[2023-09-26 09:12] VITALS: BMI 36.3
--- NOTE | 2023-09-26 09:12 | MHC.OFFVIS ---
Intake Vital Signs 09/26/23 09:12 Height 5 ft 6 in Weight 224 lb 13.944 oz BMI 36.3 Blood Pressure Location Rt brachial Position Sitting Intake Visit Reasons: Colonoscopy Screening Intake Note: Patient presents to in office visit today as a new patient for colonoscopy screening. CC: Patient c/o constipation and blood in the stool. Patient has never had colonoscopy done. He states that he underwent abdominal surgery with Dr. Mckeon last month. Executive Wellness Programs Director Required: Yes Allergies Sutures Allergy (Mild, Verified 09/26/23 09:16) Irritable HPI Colonoscopy Screening HPI Details 48-year-old male here for preprocedural meeting to discuss a screening colonoscopy. He is referred by Tod Hernandez of [facility]. PMX Obesity Depression/anxiety Insomnia Bleeding hemorrhoids Chronic idiopathic constipation Seborrheic dermatitis Abdominal wall hernia status post laparotomy * SURGICAL HISTORY Exploratory laparotomy-1991 Incisional hernia repair Drainage of abdominal wall abscess * ALLERGIES anti fungal - rash Sutures * [facility] LABS: PCP SUPPLIED LABS: 03/2023 UNREMARKABLE CBC, TSH 2.0, UNREMARKABLE HEPATIC PANEL, UNREMARKABLE RENAL PANEL, TODAY'S VISIT [place]ian #Austyn Law This is his first colonoscopy. He has severe CIC and has used Miralax, fiber, colace and senna w/o good effectd. He tries to drink a LOT of water, and the only thing that works a little is coffee and chocolate. He will go 3 days or more w/o BM and the stools are very hard. He denies any upper GI problems. There are no prior problems with anesthesia or sedation. He denies any cardiac or respiratory problems. No ID problems. There is no known FHX of crc or polyps. 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 Start with Dulcolax 2 tabs at bedtime and titrate to get his constipation controlled. Return office visit in 2 weeks to evaluate the effect. 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 Review of Systems Const Denies fatigue, Denies fever(s), Denies night sweats, Denies poor appetite and Denies weight loss ENT Reports Normal hearing present, Denies dental pain, Denies dysphagia, Denies hearing loss, Denies mouth pain, Denies odynophagia, Denies throat swelling, Denies tongue swelling and Reports other (Dentition adequate) Card Reports no additional complaints Resp Reports no additional complaints GI Details: Denies abdominal pain, Denies melena, Denies bloating, Denies hematochezia, Reports constipation, Denies GI cramping, Denies dysphagia, Denies excessive flatus, Denies early satiety, Denies heartburn, Denies diarrhea, Denies nausea, Denies odynophagia, Denies vomiting and Denies hematemesis Skin/Breast Denies pruritus, Denies lesions, Denies rash and Denies jaundice Neuro Reports Normal hearing present and Denies Abnormal speech present Endo Denies fatigue Aller/Immun Denies throat swelling and Denies tongue swelling Physical Exam Vital Signs: BMI result Body Mass Index 36.3 Const General: cooperative, no acute distress, well developed and well groomed Nutritional Appearance: well nourished and obese Orientation/consciousness: oriented to person, oriented to place and oriented to time Limitations: language barrier and other limitations (Limited Education) HEENT Head: Yes normocephalic and Yes atraumatic Eyes General: appearance normal, both eyes and all related structures Pupils: Equal, round and reactive pupils present Neck Neck: Yes normal visual inspection and Yes no lymphadenopathy Thyroid: Thyroid normal Resp Effort & Inspection: normal respiratory effort and able to speak in complete sentences Auscultation: clear to auscultation bilaterally Cardio Rate: regular rate Rhythm: regular rhythm Heart sounds: Normal, physiologic split S2 sound present Peripheral pulses: radial pulses present and posterior tibial pulses present GI Inspection: Yes distended, No Abdominal panniculus present, Yes obesity and Yes scar Palpation (GI): Soft to palpation, nontender, no guarding, not rigid and No hepatosplenomegaly present Percussion: Yes normal to percussion Auscultation: Hypoactive bowel sounds present Rectal Exam - Male: Yes deferred Abdomen image: 1. healing surgical scars with tape covering 2. Skin General skin exam: no rashes or lesions noted, turgor normal, skin not dry, no jaundice, No spider nevi and no striae Rashes: no rashes Nails: normal Neuro General: oriented to person, oriented to place and oriented to time Cranial nerves: Yes Equal, round and reactive pupils present and Yes Normal hearing present Speech: No Abnormal speech present Extrem General: Yes normal to inspection, No clubbing, No cyanosis and No edema Psych Appearance: grossly normal and well kempt Mental Status: mental status grossly normal Speech and movement: Normal speech and movement present Affect: normal affect Attitude: cooperative Thought process: Normal thought process present and not confabulating Thought content: Normal thought content present Insight: Limited insight present (Psych) Judgement: Limited judgement present (Psych) Assessment & Plan Assessment & Plan (1) Pre-op examination: Code(s): Z01.818 - Encounter for other preprocedural examination (2) Chronic idiopathic constipation: Code(s): K59.04 - Chronic idiopathic constipation Plan [place]ian #AniAustyn This is his first colonoscopy. He has severe CIC and has used Miralax, fiber, colace and senna w/o good effectd. He tries to drink a LOT of water, and the only thing that works a little is coffee and chocolate. He will go 3 days or more w/o BM and the stools are very hard. He denies any upper GI problems. There are no prior problems with anesthesia or sedation. He denies any cardiac or respiratory problems. No ID problems. There is no known FHX of crc or polyps. 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 Start with Dulcolax 2 tabs at bedtime and titrate to get his constipation controlled. Return office visit in 2 weeks to evaluate the effect. Orders: Orders Colonoscopy - GI Use Only 09/26/23 Z01.818 - Encounter for other preprocedural examination Medications: New peg 3350-electrolytes 236-22.74-6.74 -5.86 gram (Golytely) until fecal effluent is clear; do not exceed a total volume of 2,000 mL 240 mL PO Q10M 1 day 4,000 mL 0RF Z12.11 - Encounter for screening for malignant neoplasm of colon bisacodyl (Dulcolax (bisacodyl)) 10 mg (2 x 5 mg) PO BEDTIME 2 days 4 tabs 0RF bisacodyl (Dulcolax (bisacodyl)) 10 mg (2 x 5 mg) PO BEDTIME 30 days 60 tabs 3RF K59.04 - Chronic idiopathic constipation Coding Level of Care Code New Pt Level 3 (80832) Diagnoses Pre-op examination Z01.818 Chronic idiopathic constipation K59.04
== END 2023-09-26 10:11 | disposition home or self-care (01) ==
PROVIDERS: PCP Internal Medicine; Visit Provider Nurse Practitioner
DX: Z01.818 Encounter for other preprocedural examination (principal); K59.04 Chronic idiopathic constipation
CPT/HCPCS: 99203

== ENCOUNTER → 2023-09-26 09:04 | Outpatient (BNVA) | payer MEDICAID, SELFPAY | PROVIDERS: PCP Internal Medicine; Visit Provider Nurse Practitioner | DX: Z01.818 Encounter for other preprocedural examination (principal); K59.04 Chronic idiopathic constipation | CPT/HCPCS: 99212 ==

== ENCOUNTER 2023-10-15 09:07 | Outpatient (REF) | payer MEDICAID, SELFPAY ==
--- NOTE | 2023-10-15 11:51 | MHC.AU.HA3 ---
Hearing Instrument Follow-Up- Binaural Date of Visit: 10/15/23 Right Ear: Make, Model, Color, Serial Number: Sonam TAO BTE SN: [id number] Dredge Master Repair Warranty: 12/04/2013 Dredge Master Loss and Damage Warranty: 12/04/2012 Battery Size: 13 Earmold/Dome/CShell/SlimTip:Westone Otoblast Canal Lock Dispensed By: [facility] Date of Fittin10/04/2011 Left Ear: Red, Model, Color, Serial Number: Sonam TAO BTE SN: [id number] Dredge Master Repair Warranty: 12/04/2013 Dredge Master Loss and Damage Warranty: 12/04/2012 Battery Size: 13 Earmold/Dome/CShell/SlimTip: Westone Otoblast Canal Lock Dispensed By: [facility] Date of Fittin10/04/2011 Follow-Up Summary: Deepak reported that his hearing aids are not working and they constantly whistle. Right earmold upside down. Cleaned both hearing aids and ear molds. Vacuumed microphones. Ran through dehumidifier. Replaced tubing. A listening check demonstrated hearing aids amplifying clearly. No feedback noted in office with new tubes. Due to age of hearing aids, trial with new hearing aids are recommended (See Hearing Aid Evaluation report). Recommendations: Hearing instrument follow-up or maintenance as needed. Please contact our clinic with any questions or concerns. Diagnosis Code(s): Primary Diagnosis: H90.3 Bilateral Sensorineural Hearing Loss Signature: Provider: Gabino Welsh, [facility]3]-A
--- NOTE | 2023-10-15 11:52 | MHC.AU.MED ---
Medical Clearance for Hearing Instrumentation Date: 10/15/23 Patient Name: Deepak Cantor Date of : 1975 Primary Care Provider: Katerina Hernandez MD We have seen your patient on 10/15/23 and have determined that they are a candidate for amplification (See accompanying report). Specifically, they would benefit from: Hearing aid use in both ears There is a statute that addresses Medical Evaluation Requirements prior to fitting a patient with a hearing aid. According to [place] statute 265 CMR:6.03(1), (a) General. Except as provided in 265 CMR 6.03(1)(b), a hearings reporter shall not sell a hearing aid unless the prospective user has presented to the hearings reporter a written statement signed by a licensed physician that states that the patient's hearing loss has been medically evaluated and the patient may be considered a candidate for a hearing aid. The medical evaluation must have taken place within the preceding six months. Please note: Due to the [place] Statute referenced above, we cannot accept a signature other than that of a licensed physician. FAMILY AND CONSUMER EDUCATION TEACHER and PA signatures cannot be accepted. I am in agreement with the above recommendation. There is no medical contraindication for hearing instrumentation. Physician Signature Date Physician Name (Printed)
--- NOTE | 2023-10-15 14:24 | MHC.AU.HA1 ---
Hearing Aid Evaluation Date of Visit: 10/15/23 Felt Hat Steamer Used: Czech- In Person Historical Information: Description of Hearing: Moderately-severe sloping to profound sensorineural hearing loss, bilaterally Current personal amplification information: Phonak Susan SP BTEs fit in September 2011 Summary: Deepak is ready to pursue new hearing aids due to the age of his current pair. He inquired about a smaller hearing aid. Discussed the differences between RITEs and BTEs; however, Deepak ultimately opted to stay with standard BTE hearing aids. He reported his current earmolds cause constant itchiness in his ears. Will try MicroSonic molds (vs current Westone molds). Although slightly outside the fitting range, Deepak opted for rechargeable BTEs. He is interested in bluetooth compatibility as well. Hearing Aid Prescription: Based on the individual?s shared listening needs, communication environments, dexterity, desire for connectivity, and personal preferences, the following prescription for amplification has been made: Right ear: Make, Model, Color: Phonak Liliane L70-R Color: Beige Battery Size: Rechargeable Type of Earmold/Dome/CShell/SlimTip: MicroSonic M45 Canal Lock Left ear: Left ear prescription to be same as Right Hearing Aid above: Make, Model, Color: Phonak Liliane L70-R Color: Beige Battery Size: Rechargeable Type of Earmold/Dome/CShell/SlimTip: MicroSonic M45 Canal Lock Accessories/Assistive Technology: Disability Advocate Plan of Care: Patient wishes to purchase hearing aids as prescribed Action Taken/Action Needed: Medical Clearance to be requested from PCP/ENT. Hearing Instrument Fitting to be scheduled when materials arrive Primary Diagnosis: H90.3 Bilateral Sensorineural Hearing Loss Signature: Provider: Gabino Welsh, [facility]
== END 2023-10-15 09:08 | disposition home or self-care (01) ==
LOC: HO.SH 09:07
PROVIDERS: Visit Provider Internal Medicine
DX: H90.3 Sensorineural hearing loss, bilateral (principal)
CPT/HCPCS: 92557; 92591; 92593; 99499; V5275

== ENCOUNTER 2023-10-21 11:14 | Outpatient (AMB) | payer MEDICAID, SELFPAY ==
--- NOTE | 2023-10-21 11:16 | A.OFFVIS_ITS ---
Intake Vital Signs 3 10/21/23 11:22 Height 5 ft 6 in Weight 224 lb 13.944 oz BMI 36.3 BP 120/80 Blood Pressure Location Lt brachial Position Sitting Intake Visit Reasons: 1 mth follow up recurrent incisional hernia w/mesh Intake Note: Patient is seen in office for one month follow up visit, post recurrent incisional hernia repair. Pt c/o: admits to continued pain in the incision when bending or over eating Emergency Department Clinician Required: Yes Emergency Department Clinician Language: Cooker Loader Name: Angeline MENDEZ Information Interpreted: non-clinical & clinical Regional Branch Manager: Regional Branch Manager Present Accompanied by: Self / Same As Patient Allergies Sutures Allergy (Mild, Verified 10/21/23 11:22) Irritable HPI HPI Comments 2 History of Present Illness0 Details 48-year-old male patient status post rep air of an incisional hernia and excision of a wide scar in the midline abdomen on 09/08/2023. He returns today for a one-month postoperative visit.. He denies any nausea, vomiting, fever or chills. 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 Review of Systems ENT Reports Normal hearing present Neuro Reports Normal hearing present and Denies Abnormal speech present Physical Exam Const General: cooperative, no acute distress, well developed and well groomed Nutritional Appearance: well nourished and obese Orientation/consciousness: oriented to person, oriented to place and oriented to time Limitations: language barrier and other limitations (Limited Education) HEENT Head: Yes normocephalic and Yes atraumatic Eyes General: appearance normal, both eyes and all related structures Pupils: Equal, round and reactive pupils present Neck Neck: Yes normal visual inspection and Yes no lymphadenopathy Thyroid: Thyroid normal Resp Effort & Inspection: normal respiratory effort and able to speak in complete sentences Auscultation: clear to auscultation bilaterally Cardio Rate: regular rate Rhythm: regular rhythm Heart sounds: Normal, physiologic split S2 sound present Peripheral pulses: radial pulses present and posterior tibial pulses present GI Other: Midline incision is clean, dry, and intact. The scar is somewhat hypertrophic. No hernias noted with Valsalva maneuvers. Inspection: Yes distended, No Abdominal panniculus present, Yes obesity and Yes scar Palpation (GI): Soft to palpation, nontender, no guarding, not rigid and No hepatosplenomegaly present Percussion: Yes normal to percussion Auscultation: Hypoactive bowel sounds present Rectal Exam - Male: Yes deferred Abdomen image: 2 1. Midline incision Skin Other: Warm, dry, no rash General skin exam: no rashes or lesions noted, turgor normal, skin not dry, no jaundice, No spider nevi and no striae Rashes: no rashes Nails: normal Neuro General: oriented to person, oriented to place and oriented to time Cranial nerves: Yes Equal, round and reactive pupils present and Yes Normal hearing present Speech: No Abnormal speech present Extrem General: Yes normal to inspection, No clubbing, No cyanosis and No edema Psych Appearance: grossly normal and well kempt Mental Status: mental status grossly normal Speech and movement: Normal speech and movement present Affect: normal affect Attitude: cooperative Thought process: Normal thought process present and not confabulating Thought content: Normal thought content present Insight: Limited insight present (Psych) Judgement: Limited judgement present (Psych) Assessment & Plan Assessment & Plan (1) Incisional hernia: Code(s): K43.2 - Incisional hernia without obstruction or gangrene Qualifiers: Obstruction and gangrene presence: without obstruction or gangrene Qualified Code(s): K43.2 - Incisional hernia without obstruction or gangrene Plan 48-year-old male patient status post repair of a recurrent incisional hernia with. He tolerated the procedure well and his wounds are healing nicely. He may resume normal activity without restrictions and should follow up as needed. Coding Level of Care Code Global (42708) Diagnoses Incisional hernia, without obstruction or gangrene K43.2 Obstruction and gangrene presence: without obstruction or gangrene
[2023-10-21 11:22] VITALS: BP 120/80; BMI 36.3
== END 2023-10-21 11:21 | disposition home or self-care (01) ==
PROVIDERS: PCP Internal Medicine; Visit Provider Surgery
DX: K43.2 Incisional hernia without obstruction or gangrene (principal)
CPT/HCPCS: 99212

== ENCOUNTER → 2023-10-21 11:14 | Outpatient (BNVA) | payer MEDICAID, SELFPAY | PROVIDERS: PCP Internal Medicine; Visit Provider Surgery | DX: K43.2 Incisional hernia without obstruction or gangrene (principal) | CPT/HCPCS: 99212 ==

== ENCOUNTER 2023-10-24 08:14 | Outpatient (AMB) | payer MEDICAID, SELFPAY ==
--- NOTE | 2023-10-24 08:22 | A.OFFVIS_ITS ---
Intake Vital Signs 10/24/23 08:24 Height 5 ft 6 in Weight 224 lb 13.944 oz BMI 36.3 BP 133/77 Blood Pressure Location Lt brachial Position Sitting Pulse 69 Intake Visit Reasons: Med check PT N/S to last appt Intake Note: Deepak presents in the office as a med check to last appt. CC: He states that he had a surgery to fix stitches - he is not taking any medications and no concerns today. Chicken Handler Required: Yes Chicken Handler Name: [id number] Sarahi Allergies Sutures Allergy (Mild, Verified 10/24/23 08:26) Irritable HPI Med check PT N/S to last appt HPI Details Assessment & Plan (1) Pre-op examination: Code(s): Z01.818 - Encounter for other preprocedural examination (2) Chronic idiopathic constipation: Code(s): K59.04 - Chronic idiopathic constipation Plan Vietnamese #Ani, Live This is his first colonoscopy. He has severe CIC and has used Miralax, fiber, colace and senna w/o good effectd. He tries to drink a LOT of water, and the only thing that works a little is coffee and chocolate. He will go 3 days or more w/o BM and the stools are very hard. He denies any upper GI problems. There are no prior problems with anesthesia or sedation. He denies any cardiac or respiratory problems. No ID problems. There is no known FHX of crc or polyps. 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 Start with Dulcolax 2 tabs at bedtime and titrate to get his constipation controlled. Return office visit in 2 weeks to evaluate the effect. Orders: Orders Colonoscopy - GI U se Only 09/26/23 Z01.818 - Encounte r for other prepro cedural examinatio n Medications: New peg 3350-electroly miguel 236-22.74-6.74 -5.86 gram (Golyt lillian) until feca l effluent is sobia r; do not exceed a total volume of 2 ,000 mL 240 mL PO Q10M 1 day 4,000 mL 0RF Z12.11 - Encounter for screening for malignant neoplas m of colon bisacodyl (Dulcola x (bisacodyl)) 10 mg (2 x 5 mg) P O BEDTIME 2 days 4 tabs 0RF bisacodyl (Dulcola x (bisacodyl)) 10 mg (2 x 5 mg) P O BEDTIME 30 days 60 tabs 3RF K59.04 - Chronic i diopathic constipa tion COLONOSCOPY BIOPSY CORRESPONDENCE On 10/09/23 @ 14:47 Angeline Jose Wrote To Marsh this patient has an appt with you 11/01, when he is done could you bring to us to schedule his colon weve been trying to get ahold him with no luck ty On 10/09/23 @ 10:46 Angeline Jose Wrote To [facility] letter mailed to pt to call office to scheduled. On 10/01/23 @ 10:38 Angeline Jose Wrote To [facility] lvm. On 09/26/23 @ 10:44 Angeline Jose Wrote To [facility] left message for pt to cb, added to spread sheet Angeline Jose completed item. On 09/26/23 @ 10:06 Marsh Wrote To [facility] for screening PEG TODAY'S VISIT Vietnamese # Cindy Live He seems a bit confused today, and with observation and after discussion I discover that he is [place] since childhood - today they are fixing my hearing aids. Since this was not on his medical chart I include this as an important detail. He did not received the bisacodyl, likely r/t insurance coverage so I write it out for him to buy OTC. He will be walked down to the schedulers to schedule the scope today. He says they had called with a January date, but he would like it sooner. This may be difficult with a cancellation list since we have had trouble getting a hold of him in the past. ROV 4 weeks to eval bisacodyl. 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 Review of Systems Const Denies fatigue, Denies fever(s), Denies night sweats, Denies poor appetite and Denies weight loss ENT Denies Normal hearing present, Denies dental pain, Denies dysphagia, Reports hearing loss, Denies mouth pain, Denies odynophagia, Denies throat swelling, Denies tongue swelling and Reports other (Dentition adequate) Card Reports no additional complaints Resp Reports no additional complaints GI Details: Denies abdominal pain, Denies melena, Denies bloating, Denies hematochezia, Reports constipation, Denies GI cramping, Denies dysphagia, Denies excessive flatus, Denies early satiety, Denies heartburn, Denies diarrhea, Denies nausea, Denies odynophagia, Denies vomiting and Denies hematemesis Skin/Breast Denies pruritus, Denies lesions, Denies rash and Denies jaundice Neuro Denies Normal hearing present and Denies Abnormal speech present Endo Denies fatigue Aller/Immun Denies throat swelling and Denies tongue swelling Physical Exam Vital Signs: Last Vital Signs Pulse 69 10/24/23 08:24 BP 133/77 10/24/23 08:24 BMI result Body Mass Index 36.3 Const General: cooperative, no acute distress, well developed and well groomed Nutritional Appearance: well nourished and obese Orientation/consciousness: oriented to person, oriented to place and oriented to time Limitations: language barrier and other limitations (Hearing) HEENT Head: Yes normocephalic and Yes atraumatic Eyes General: appearance normal, both eyes and all related structures Pupils: Equal, round and reactive pupils present Neck Neck: Yes normal visual inspection and Yes no lymphadenopathy Thyroid: Thyroid normal Resp Effort & Inspection: normal respiratory effort and able to speak in complete sentences Auscultation: clear to auscultation bilaterally Cardio Rate: regular rate Rhythm: regular rhythm Heart sounds: Normal, physiologic split S2 sound present Peripheral pulses: radial pulses present and posterior tibial pulses present GI Inspection: No distended, No Abdominal panniculus present and Yes obesity Palpation (GI): Soft to palpation, nontender, no guarding, not rigid and No hepatosplenomegaly present Percussion: Yes normal to percussion Auscultation: normal bowel sounds Rectal Exam - Male: Yes deferred Skin General skin exam: no rashes or lesions noted, turgor normal, skin not dry, no jaundice, No spider nevi and no striae Rashes: no rashes Nails: normal Neuro General: oriented to person, oriented to place and oriented to time Cranial nerves: Yes Equal, round and reactive pupils present and No Normal hearing present Speech: No Abnormal speech present Extrem General: Yes normal to inspection, No clubbing, No cyanosis and No edema Psych Appearance: grossly normal and well kempt Mental Status: mental status grossly normal Speech and movement: Normal speech and movement present Affect: normal affect Attitude: cooperative Thought process: Normal thought process present and not confabulating Thought content: Normal thought content present Insight: Limited insight present (Psych) Judgement: Limited judgement present (Psych) Assessment & Plan Assessment & Plan (1) Chronic idiopathic constipation: Code(s): K59.04 - Chronic idiopathic constipation (2) Hard of hearing: Code(s): H91.90 - Unspecified hearing loss, unspecified ear Plan Vietnamese # Cindy Live He seems a bit confused today, and with observation and after discussion I discover that he is [place] since childhood - today they are fixing my hearing aids. Since this was not on his medical chart I include this as an important detail. He did not received the bisacodyl, likely r/t insurance coverage so I write it out for him to buy OTC. He will be walked down to the schedulers to schedule the scope today. He says they had called with a January date, but he would like it sooner. This may be difficult with a cancellation list since we have had trouble getting a hold of him in the past. ROV 4 weeks to eval bisacodyl. COLONOSCOPY BIOPSY Coding Level of Care Code Est Pt Level 3 (02082) Diagnoses Chronic idiopathic constipation K59.04 Hard of hearing H91.90
[2023-10-24 08:24] VITALS: BP 133/77; PULSE 69; BMI 36.3
== END 2023-10-24 09:07 | disposition home or self-care (01) ==
PROVIDERS: PCP Internal Medicine; Visit Provider Nurse Practitioner
DX: K59.04 Chronic idiopathic constipation (principal); H91.90 Unspecified hearing loss, unspecified ear
CPT/HCPCS: 99213

== ENCOUNTER → 2023-10-24 08:14 | Outpatient (BNVA) | payer MEDICAID, SELFPAY | PROVIDERS: PCP Internal Medicine; Visit Provider Nurse Practitioner | DX: K59.04 Chronic idiopathic constipation (principal); H91.90 Unspecified hearing loss, unspecified ear | CPT/HCPCS: 99212 ==

== ENCOUNTER 2023-11-20 12:52 | Outpatient (REF) | payer MEDICAID, SELFPAY | END 2023-11-20 12:53 | disposition home or self-care (01) | LOC: HO.HAP 12:52 | PROVIDERS: Visit Provider Internal Medicine | DX: Z46.1 Encounter for fitting and adjustment of hearing aid (principal); H90.3 Sensorineural hearing loss, bilateral | CPT/HCPCS: V5011; V5020; V5160; V5261; V5264 ==

== ENCOUNTER 2024-02-04 08:48 | Day surgery (SDC) | payer MEDICAID, SELFPAY ==
[2024-02-02 14:52] VITALS: BMI 36.3
--- NOTE | 2024-02-03 08:33 | HO.ANESPROP2 ---
Documented by User: Angeline Malik NP 02/03/24 08:33 HPI - Anesthesia Eval Consult details Narrative: 48yo M for Colonoscopy PMFSH Active Problems Active Problems: All Active Problems Hard of hearing (Acute) Pre-op examination (Acute) Obesity (BMI 30.0-34.9) (Acute) Seborrheic dermatitis (Acute) Chronic idiopathic constipation (Acute) Bleeding hemorrhoids (Acute) Incisional hernia (Acute) COVID-19 (Acute) Strain of right gastrocnemius muscle (Acute) Right ankle sprain (Acute) Marijuana intoxication (Acute) Past Medical History Medical History (Updated 02/02/24 @ 14:50 by Esther Torres RN) Hard of hearing Depression Insomnia Anxiety Family History Family history of problems with anesthesia: No Surgical History Surgical History (Updated 02/02/24 @ 14:51 by Esther Torres RN) History of incisional hernia repair (09/08/23) History of surgery (12/16/14) History of exploratory laparotomy (1991) History of Problems with Anesthesia: No Social History Social History Alcohol intake: current Alcohol intake frequency: does not drink Alcohol type: beer Patient Tobacco Use Status: Never used Tobacco Are you DNR?: No Advance Directives: No Advance Directives Information Provided: Yes Recently lost weight without trying: No Nutrition Risks: No Nutritional Risk Current occupational status: employed 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 Allergies Allergy/AdvReac Type Severity Reaction Status Date / Time No Known Allergies Allergy Verified 02/04/24 09:58 Home Medications ?Medication ?Instructions ?Recorded ?Confirmed ?Last Taken ?Type No Known Home Meds 02/04/24 02/04/24 Unknown History Exam Height,Weight and Vital Signs: Height 5 ft 6 in Weight 102.058 kg Assessment and Plan Assessment Anesthesia Assessment: Chart Reviewed Final Anesthetic Review Family History of Problems with Anesthesia: No History of Problems with Anesthesia: No Documented by User: Gudelia Birch MD 02/04/24 10:15 PMF Past Medical History Medical History (Updated 02/02/24 @ 14:50 by Esther Torres, RN) Hard of hearing Depression Insomnia Anxiety Surgical History Surgical History (Updated 02/02/24 @ 14:51 by Esther Torres, RN) History of incisional hernia repair (09/08/23) History of surgery (12/16/14) History of exploratory laparotomy (1991) Social History Social History Alcohol intake: current Alcohol intake frequency: does not drink Alcohol type: beer Patient Tobacco Use Status: Never used Tobacco Are you DNR?: No Advance Directives: No Advance Directives Information Provided: Yes Recently lost weight without trying: No Nutrition Risks: No Nutritional Risk Current occupational status: employed 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 Allergies Allergy/AdvReac Type Severity Reaction Status Date / Time No Known Allergies Allergy Verified 02/04/24 09:58 Home Medications ?Medication ?Instructions ?Recorded ?Confirmed ?Last Taken ?Type No Known Home Meds 02/04/24 02/04/24 Unknown History Exam Airway Mallampati Class: II TM Dist: >3cm Neck ROM: Full Heart: rrr Lungs: cta Assessment and Plan Assessment Anesthesia Assessment: Anesthesia Plan Discussed and Chart Reviewed Final Anesthetic Review NPO: Yes ASA Class: II Final Preanesthetic Review: No Changes in Pt Med Stat, Meds/Allgs Chart Reviewed and Consent Obtained/Reviewed Patient Risk: Low Procedure Risk: Low Anesthetic Plan Anesthetic Plan: MAC: Disposition: Standard PACU
[2024-02-04 09:37] VITALS: BP 117/54; PULSE 57; RESP 18; TEMP 36.4; O2SAT 97; BMI 36.3
[2024-02-04] MEDS: Lactated Ringers 1,000 ML 100 ML IVCONT (09:55)
--- NOTE | 2024-02-04 09:59 | MHC.SHP ---
Pre-Procedural Eval Section A - 24 Hr Update-Section A only Date of Service: 02/04/24 Section B - Complete if H&P > 30 days Chief Complaint: Encounter for screening for malignant neoplasm of Relevant Family History (Specify if Yes): No Relevant Social History: None Present Medications: see Short Stay Collaborative assessment Medical History: Significant History (Depression Insomnia Anxiety) History of Previous Operations: Relevant previous surgery/procedure and date(s) (History of incisional hernia repair (09/08/23) History of surgery (12/16/14) History of exploratory laparotomy (1991)) Allergies: Allergies Allergy/AdvReac Type Severity Reaction Status Date / Time No Known Allergies Allergy Verified 02/04/24 09:58 Review of Systems Sugical H&P ROS: Negative: Constitution, Cardiovascular, Respiratory, Neurological, Psychiatric, Hem-Onc, Allergic/Immunologic, Gastrointestinal, Genitourinary, Musculoskeletal, Integumentary, Endocrine and Eyes/Ears/Nose/Throat Exam Surgical H&P Exam: Normal: HEENT, Normal: Heart, Normal: Lungs, Normal: Extremities, Normal: Abdomen, Normal: Skin and Normal: Neurological Plan Diagnosis/Plan: Unchanged I have reviewed the history and physical and performed a pertinent physical examination on my patient. No changes have occurred unless specified. Time Spent With Patient Time: Total time managing care of this patient today ____ minutes.
[2024-02-04 11:06] VITALS: BP 107/75; PULSE 86; RESP 16; TEMP 36.1; O2SAT 99
--- NOTE | 2024-02-04 11:11 | HO.OPN-COLON ---
Colonoscopy Operative Note Operative Note Date of Service: 02/04/24 Narrative: Operative Information Procedure Description: Colonoscopy Indication: screening Anesthesia: MAC COLONOSCOPY Instrument: Olympus variable stiffness ADULT scope 190L Colonoscopy Monitoring: Vital signs and clinical assessment, continuous EKG monitoring, Pulse oximetry, Carbon Dioxide monitoring and blood pressure monitoring were done throughout the procedure. Colon withdrawal time was 11 minutes. Procedure: The patient was placed in the left lateral decubitis position and pre-procedure medications were administered. After a digital rectal examination of the ano-rectum, the video colonoscope was inserted into the rectum and advanced through the colon to the cecum/TI. The colonoscope was slowly withdrawn in a retrograde panoramic fashion and the colon mucosa was carefully examined including a retroflexed view of the rectum. Findings and interventions are described below. Procedure Difficulty: moderate due to looping Findings: Terminal Ileum- unable to intubate due to looping Cecum:normal Ascending Colon: normal Transverse Colon -normal Descending Colon: 6-8 mm sessile polyp removed with cold snare Sigmoid Colon: normal Rectum: Retroflexion with small internal hemorrhoids seen, grade I Anorectum - normal Intervention: cold snare Colon preparation: [place] Bowel Preparation Scale Right colon; 1-2 Transverse colon: 2 Left colon; 2 (0 = Unprepared colon segment with mucosa not seen due to solid stool that cannot be cleared. 1 = Portion of mucosa of the colon segment seen, but other areas of the colon segment not well seen due to staining, residual stool and/or opaque liquid. 2 = Minor amount of residual staining, small fragments of stool and/or opaque liquid, but mucosa of colon segment seen well. 3 = Entire mucosa of colon segment seen well with no residual staining, small fragments of stool or opaque liquid) Impression and Post Procedure Diagnosis: colon polyp internal hemorrhoids Plan: High fiber diet leaflet Avoid straining at stool, epsom salts and sitz bath, anusol supps or cream Repeat Colonoscopy in 5 years due to fair sided right sided prep or earlier if clinically indicated Above findings were reviewed with the patient and relevant handouts were provided if indicated.
[2024-02-04 11:21] VITALS: BP 123/80; PULSE 71; RESP 17; TEMP 36.1; O2SAT 95
[2024-02-04 11:36] VITALS: BP 108/82; PULSE 80; RESP 16; O2SAT 99
== END 2024-02-04 12:58 | disposition home or self-care (01) ==
PROVIDERS: PCP Internal Medicine; Referring Provider Internal Medicine; Visit Provider Internal Medicine Gastroenterology
PROC: 0DJD8ZZ Inspection of Lower Intestinal Tract, Via Natural or Artificial Opening Endoscopic (ICD-10-PCS; CPT 45378; principal; 2024-02-04 10:30)
DX: Z12.11 Encounter for screening for malignant neoplasm of colon (principal); D12.4 Benign neoplasm of descending colon; K64.0 First degree hemorrhoids; K59.04 Chronic idiopathic constipation; F32.A Depression, unspecified; G47.00 Insomnia, unspecified; Z79.899 Other long term (current) drug therapy
CPT/HCPCS: 45385; 88305; J2704

== ENCOUNTER → 2024-02-04 08:48 | Outpatient (BNV) | payer MEDICAID, SELFPAY | PROVIDERS: PCP Internal Medicine; Visit Provider Internal Medicine Gastroenterology | DX: Z12.11 Encounter for screening for malignant neoplasm of colon (principal); D12.4 Benign neoplasm of descending colon; K64.0 First degree hemorrhoids | CPT/HCPCS: 45385 ==

== ENCOUNTER 2024-03-02 11:21 | Outpatient (AMB) | payer MEDICAID, SELFPAY ==
[2024-03-02 11:27] VITALS: BP 119/79; PULSE 57; BMI 36.5
--- NOTE | 2024-03-02 11:27 | MHC.OFFVIS ---
Vital Signs 03/02/24 11:27 Height 5 ft 6 in Weight 226 lb 3.108 oz BMI 36.5 BP 119/79 Blood Pressure Location Rt brachial Position Sitting Pulse 57 Intake Visit Reasons: s/p colonoscopy Intake Note: Deepak returns to in office follow up s/p colonoscopy. CC: Patient reports having usually a BM in the morning with loose stools. Denies having any GI symptom today. Knife Changer Required: Yes Accompanied by: Self / Same As Patient Allergies No Known Allergies Allergy (Verified 04/13/24 15:40) HPI HPI s/p colonoscopy: Details: Assessment & Plan (1) Chronic idiopathic constipation: Code(s): K59.04 - Chronic idiopathic constipation (2) Hard of hearing: Code(s): H91.90 - Unspecified hearing loss, unspecified ear Plan Lithuanian # Cindy Live He seems a bit confused today, and with observation and after discussion I discover that he is [place] since childhood - today they are fixing my hearing aids. Since this was not on his medical chart I include this as an important detail. He did not received the bisacodyl, likely r/t insurance coverage so I write it out for him to buy OTC. He will be walked down to the schedulers to schedule the scope today. He says they had called with a January date, but he would like it sooner. This may be difficult with a cancellation list since we have had trouble getting a hold of him in the past. ROV 4 weeks to eval bisacodyl. COLONOSCOPY 02/04/24 Findings: Terminal Ileum- unable to intubate due to looping Cecum:normal Ascending Colon: normal Transverse Colon -normal Descending Colon: 6-8 mm sessile polyp removed with cold snare Sigmoid Colon: normal Rectum: Retroflexion with small internal hemorrhoids seen, grade I Anorectum - normal Intervention: cold snare Impression and Post Procedure Diagnosis: colon polyp internal hemorrhoids Plan: High fiber diet leaflet Avoid straining at stool, epsom salts and sitz bath, anusol supps or cream Repeat Colonoscopy in 5 years due to fair sided right sided prep or earlier if clinically indicated BIOPSY Received: 02/04/24 Diagnosis Colon, descending, polyp: Tubular adenoma; negative for high-grade dysplasia and carcinoma TODAY'S VISIT Lithuanian #V Live (pt [place] trouble with pad no other pediatric speech language pathologist avaiable.) He is agreeable for th 5 year recall. The procedure was well tolerated. The results were explained and the patient is agreeable to the follow-up interval as stated. The bowel pattern has returned to normal. Education was provided to tell any 1st degree relatives about their findings to be sure that they are screened by age 45. Educated that they will be put on a recall list when it is time for their repeat scope but should they move out of state or away from the hospital they will need to remember along with their primary to repeat the procedure in a timely fashion to avoid any adverse complications. He ran out of the bisacodyl, but it was working well for his CIC. Will refill and ROV 6 weeks to be sure this is working. 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 Review of Systems Const Denies fatigue, Denies fever(s), Denies night sweats, Denies poor appetite and Denies weight loss ENT Denies Normal hearing present, Denies dental pain, Denies dysphagia, Reports hearing loss, Denies mouth pain, Denies odynophagia, Denies throat swelling, Denies tongue swelling and Reports other (Dentition adequate) Card Reports no additional complaints Resp Reports no additional complaints GI Details: Denies abdominal pain, Denies melena, Denies bloating, Denies hematochezia, Reports constipation, Denies GI cramping, Denies dysphagia, Denies excessive flatus, Denies early satiety, Denies heartburn, Denies diarrhea, Denies nausea, Denies odynophagia, Denies vomiting and Denies hematemesis Skin/Breast Denies pruritus, Denies lesions, Denies rash and Denies jaundice Neuro Denies Normal hearing present and Denies Abnormal speech present Endo Denies fatigue Aller/Immun Denies throat swelling and Denies tongue swelling Physical Exam Vital Signs: Last Vital Signs Pulse 57 03/02/24 11:27 BP 119/79 03/02/24 11:27 BMI result Body Mass Index 36.5 Const General: cooperative, no acute distress, well developed and well groomed Nutritional Appearance: well nourished and obese Orientation/consciousness: oriented to person, oriented to place and oriented to time Limitations: language barrier HEENT Head: Yes normocephalic and Yes atraumatic Eyes General: appearance normal, both eyes and all related structures Pupils: Equal, round and reactive pupils present Neck Neck: Yes normal visual inspection and Yes no lymphadenopathy Thyroid: Thyroid normal Resp Effort & Inspection: normal respiratory effort and able to speak in complete sentences Auscultation: clear to auscultation bilaterally Cardio Rate: regular rate Rhythm: regular rhythm Heart sounds: Normal, physiologic split S2 sound present Peripheral pulses: radial pulses present and posterior tibial pulses present GI Inspection: No distended, No Abdominal panniculus present and Yes obesity Palpation (GI): Soft to palpation, nontender, no guarding, not rigid and No hepatosplenomegaly present Percussion: Yes normal to percussion Auscultation: normal bowel sounds Rectal Exam - Male: Yes deferred Skin General skin exam: no rashes or lesions noted, turgor normal, skin not dry, no jaundice, No spider nevi and no striae Rashes: no rashes Nails: normal Neuro General: oriented to person, oriented to place and oriented to time Cranial nerves: Yes Equal, round and reactive pupils present and No Normal hearing present Speech: No Abnormal speech present Extrem General: Yes normal to inspection, No clubbing, No cyanosis and No edema Psych Appearance: grossly normal and well kempt Mental Status: mental status grossly normal Speech and movement: Normal speech and movement present Affect: normal affect Attitude: cooperative Thought process: Normal thought process present and not confabulating Thought content: Normal thought content present Insight: Limited insight present (Psych) Judgement: Limited judgement present (Psych) Assessment & Plan Assessment & Plan (1) Tubular adenoma of colon: Comment: 02/2024 scope=TA repeat in 5 years. Code(s): D12.6 - Benign neoplasm of colon, unspecified Category: Medical (2) Chronic idiopathic constipation: Code(s): K59.04 - Chronic idiopathic constipation Category: Medical Plan [place]ian #V Live (pt [place] trouble with pad no other pediatric speech language pathologist avaiable.) He is agreeable for th 5 year recall. The procedure was well tolerated. The results were explained and the patient is agreeable to the follow-up interval as stated. The bowel pattern has returned to normal. Education was provided to tell any 1st degree relatives about their findings to be sure that they are screened by age 45. Educated that they will be put on a recall list when it is time for their repeat scope but should they move out of state or away from the hospital they will need to remember along with their primary to repeat the procedure in a timely fashion to avoid any adverse complications. He ran out of the bisacodyl, but it was working well for his CIC. Will refill and ROV 6 weeks to be sure this is working. Medications: New bisacodyl (Dulcolax (bisacodyl)) 10 mg (2 x 5 mg) PO BEDTIME 60 tabs 6RF 30 days K59.04 - Chronic idiopathic constipation Coding Level of Care Code Est Pt Level 3 (45385) Diagnoses Tubular adenoma of colon D12.6 Chronic idiopathic constipation K59.04
== END 2024-03-02 11:58 | disposition home or self-care (01) ==
PROVIDERS: PCP Internal Medicine; Visit Provider Nurse Practitioner
DX: D12.6 Benign neoplasm of colon, unspecified (principal); K59.04 Chronic idiopathic constipation
CPT/HCPCS: 99213

== ENCOUNTER → 2024-03-02 11:21 | Outpatient (BNVA) | payer MEDICAID, SELFPAY | PROVIDERS: PCP Internal Medicine; Visit Provider Nurse Practitioner | DX: K59.04 Chronic idiopathic constipation (principal); D12.6 Benign neoplasm of colon, unspecified; R19.7 Diarrhea, unspecified | CPT/HCPCS: 99212 ==

== ENCOUNTER 2024-04-13 15:19 | Outpatient (AMB) | payer MEDICAID, SELFPAY ==
--- NOTE | 2024-04-13 15:24 | A.OFFVIS_ITS ---
Vital Signs 04/13/24 15:32 Height 5 ft 6 in Weight 226 lb 10.163 oz BMI 36.6 BP 108/69 Blood Pressure Location Rt brachial Position Sitting Pulse 75 Intake Visit Reasons: 6 week follow up Intake Note: Deepak returns to in office 6 weeks follow up of CIC. CC: Patient reports that the medication is helping with constipation. Denies having other GI symptoms. 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 The procedure was well tolerated. The results were explained and the patient is agreeable to the follow-up interval as stated. The bowel pattern has returned to normal. Education was provided to tell any 1st degree relatives about their findings to be sure that they are screened by age 45. Educated that they will be put on a recall list when it is time for their repeat scope but should they move out of state or away from the hospital they will need to remember along with their primary to repeat the procedure in a timely fashion to avoid any adverse complications. He ran out of the bisacodyl, but it was working well for his CIC. Will refill and ROV 6 weeks to be sure this is working. Assessment & Plan (1) Tubular adenoma of colon: Code(s): D12.6 - Benign neoplasm of colon, unspecified Category: Medical (2) Chronic idiopathic constipation: Code(s): K59.04 - Chronic idiopathic constipation Category: Medical Medications: New bisacodyl (Dulcolax (bisacodyl)) 10 mg (2 x 5 mg) PO BEDTIME 30 days 60 tabs 6RF K59.04 - Chronic idiopathic constipation TODAY'S VISIT Kobi Hicks Live He is here today with his brother who is supportive He is now moving his bowels well the bisacodyl and a satisfied with his GI regimen. He has no further GI issues to discuss. 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 Review of Systems Const Denies fatigue, Denies fever(s), Denies night sweats, Denies poor appetite and Denies weight loss ENT Denies Normal hearing present, Denies dental pain, Denies dysphagia, Denies hearing loss, Denies mouth pain, Denies odynophagia, Denies throat swelling, Denies tongue swelling and Reports other (Dentition adequate) Card Reports no additional complaints Resp Reports no additional complaints GI Details: Denies abdominal pain, Denies melena, Denies bloating, Denies hematochezia, Reports constipation, Denies GI cramping, Denies dysphagia, Denies excessive flatus, Denies early satiety, Denies heartburn, Denies diarrhea, Denies nausea, Denies odynophagia, Denies vomiting and Denies hematemesis Skin/Breast Denies pruritus, Denies lesions, Denies rash and Denies jaundice Neuro Denies Normal hearing present and Denies Abnormal speech present Endo Denies fatigue Aller/Immun Denies throat swelling and Denies tongue swelling Physical Exam Vital Signs: Last Vital Signs Pulse 75 04/13/24 15:32 BP 108/69 04/13/24 15:32 BMI result Body Mass Index 36.6 Const General: cooperative, no acute distress, well developed and well groomed Nutritional Appearance: well nourished and obese centrally obese Orientation/consciousness: oriented to person, oriented to place and oriented to time Limitations: language barrier and other limitations HEENT Head: Yes normocephalic and Yes atraumatic Eyes General: appearance normal, both eyes and all related structures Pupils: Equal, round and reactive pupils present Neck Neck: Yes normal visual inspection and Yes no lymphadenopathy Thyroid: Thyroid normal Resp Effort & Inspection: normal respiratory effort and able to speak in complete sentences Auscultation: clear to auscultation bilaterally Cardio Rate: regular rate Rhythm: regular rhythm Heart sounds: Normal, physiologic split S2 sound present Peripheral pulses: radial pulses present and posterior tibial pulses present GI Inspection: No distended, No Abdominal panniculus present and Yes obesity Palpation (GI): Soft to palpation, nontender, no guarding, not rigid and No hepatosplenomegaly present Percussion: Yes normal to percussion Auscultation: normal bowel sounds Rectal Exam - Male: Yes deferred Skin General skin exam: no rashes or lesions noted, turgor normal, skin not dry, no jaundice, No spider nevi and no striae Rashes: no rashes Nails: normal Neuro General: oriented to person, oriented to place and oriented to time Cranial nerves: Yes Equal, round and reactive pupils present and No Normal hearing present Speech: No Abnormal speech present Extrem General: Yes normal to inspection, No clubbing, No cyanosis and No edema Psych Appearance: grossly normal and well kempt Mental Status: mental status grossly normal Speech and movement: Normal speech and movement present Affect: normal affect Attitude: cooperative Thought process: Normal thought process present and not confabulating Thought content: Normal thought content present Insight: Limited insight present (Psych) Judgement: Limited judgement present (Psych) Assessment & Plan Assessment & Plan (1) Chronic idiopathic constipation: Code(s): K59.04 - Chronic idiopathic constipation Category: Medical Plan Thai #Wilner Live He is here today with his brother who is supportive He is now moving his bowels well the bisacodyl and a satisfied with his GI regimen. He has no further GI issues to discuss. Return office visit in 6 months Medications: Refilled bisacodyl (Dulcolax (bisacodyl)) 10 mg (2 x 5 mg) PO BEDTIME 60 tabs 6RF 30 days K59.04 - Chronic idiopathic constipation Coding Level of Care Code Est Pt Level 3 (58278) Diagnoses Chronic idiopathic constipation K59.04
[2024-04-13 15:32] VITALS: BP 108/69; PULSE 75; BMI 36.6
== END 2024-04-13 16:05 | disposition home or self-care (01) ==
PROVIDERS: PCP Internal Medicine; Visit Provider Nurse Practitioner
DX: K59.04 Chronic idiopathic constipation (principal)
CPT/HCPCS: 99213

== ENCOUNTER → 2024-04-13 15:19 | Outpatient (BNVA) | payer MEDICAID, SELFPAY | PROVIDERS: PCP Internal Medicine; Visit Provider Nurse Practitioner | DX: K59.04 Chronic idiopathic constipation (principal); D12.6 Benign neoplasm of colon, unspecified; Z79.899 Other long term (current) drug therapy | CPT/HCPCS: 99212 ==

== ENCOUNTER 2025-05-03 11:13 | Outpatient (REF) | payer MEDICAID, SELFPAY ==
--- OUTSIDE RECORDS SUMMARY | 2025-05-03 14:03 | XMS_ITS | Encounter Summary ---
Author Organization [employer] Address [address] [facility] [address] [place] [address] Care Team Providers Care Horse Wrangler Name Role Phone Katerina Hernandez MD Primary Care Provider [phone]- [phone] Encounter Details Date Type Department Care Team ([facility] st Contact Info) Description 02/24/2023 Orders Only [facility] [address] [place], [place] [phone] Katerina Hernandez MD [address] [place], [place] [phone] Decreased hearing of both ears (Primary Dx) Social History Tobacco Use Types Packs/Day Years Used Date Smoking Tobacco: Never Smokeless Tobacco: Never Sex and Gender Information Value Date Recorded Sex Assigned at Male 06/10/2022 10:17 AM EDT Legal Sex Male 10:17 AM EDT Gender Identity Male 06/10/2022 10:17 AM EDT Sexual Orientation Straight 06/10/2022 10 :17 AM EDT documented as of this encounter Plan of Treatment Not on file documented as of this encounter Procedures Procedure Name Priority Date/Time Associated Diagnosis Comments HEMATOXYLIN AND EOSIN STAIN Routine 02/04/2024 10:59 AM EDT Decreased hearing of both ears GROSS AND MICROSCOPIC LEVEL 2 Routine 09/08/2023 11:16 AM EST Decreased hearing of both ears BASIC METABOLIC PANEL, FASTING Routine 03/27/2023 9:55 AM EDT Decreased hearing of both ears documented in this encounter Results * Hematoxylin and Eosin Stain (02/04/2024 10:59 AM EDT) 02/04/2024 10:5 9 AM EDT 02/04/2024 11:37 AM EDT [facility] - 02/05/2024 10:50 AM EDT ----- ------- Name: Deepak Cantor Age/Sex: 48/M : 1975 Unit#: [id number] Attend Dr: Mela Lama MD Re02/04/24 Status: [facility] Location: [facility] Disch: ----- ------- SPEC : [id number] RECD: 02/04/24-1137 STATUS: KIYA AGUILAR NUM: [id number] DOROTHY: 02/04/24-[address] [facility] [address]: Mela Lama MD ENTERED: 02/04/24-1145 SP TYPE: Surgical OTHR DR: Katerina Hernandez MD ORDERED: HE Stain/3, Gross Micro L4 Diagnosis Colon, descending, polyp: Tubular adenoma; negative for high-grade dysplasia and carcinoma. Clinical History Pre-Op Dx: Colon cancer screening Post-Op Dx: Colon polyp, internal hemorrhoids Microscopic Description Microscopic sections reviewed. Material Received Descending colon polyp Gross Description Received in formalin labeled descending colon polyp are several irregular fragments of aparicio and aparicio-pink mucosa ranging from 0.2-0.4 cm, submitted in toto in a cassette labeled Rema JAMES Copies To: Katerina Hernandez MD [address] [id number] Mela Lama MD [facility] [address] [place] [phone] ----- ------- Signed (signature on file) Edith Lambrook 02/05/24 1050 ----- ------- END OF REPORT Generic External Data Provider LAB BLOOD ORDERAB LES Final Result [facility] [address] [place] [phone] * Gross and Microscopic Level 2 (09/08/2023 11:16 AM EST) 09/08/2023 11:1 6 AM EST 09/08/2023 1:09 PM EST Meka [facility] - 09/09/2023 1:50 PM EST ----- ------- Name: Deepak Cantor Age/Sex: 48/M : 1975 Unit#: [id number] Attend Dr: Luis Schwab MD Re09/08/23 Status: [facility] Location: [facility] Disch: ----- ------- SPEC : [id number] RECD: 09/08/23-1309 STATUS: [facility] NUM: [id number] DOROTHY: 09/08/23-[address] [facility] [address]: Luis Schwab MD ENTERED: 09/08/23-1330 SP TYPE: Surgical OTHR DR: Katerina Hernandez MD ORDERED: Gross Micro L2, Gross Micro L5 Diagnosis A. Skin, midline scar , excision: Skin with dermal scar and changes consistent with prior procedure; otherwise within normal limits. B. Incisional hernia, herniorrhaphy: Mesothelial-lined fibrovascular and adipose tissue consistent with hernia sac. Clinical History Incisional hernia without obstruction or gangrene Microscopic Description A, B. Microscopic sections reviewed. Material Received A. Midline scar B. Hernia sac Gross Description Received in 2 parts. Part A: Received in formalin labeled midline scar is a 15.5 cm in length and 1.0-2.5 cm in width wrinkled and irregularly contoured ellipse of aparicio and aparicio-brown skin and cauterized subcutaneous tissue excised to a maximum depth of 0.8 cm. The skin surface displays a central wrinkled focally nodular well-healed scar measuring 12.0 x 2.5 cm. the margins are inked and the specimen is serially sectioned to reveal dense, firm, slightly nodular, aparicio- white fibrous dermal tissue and unremarkable subcutaneous fat. Receiving Inspector sections are submitted in cassettes A1 and A2. Part B: Received in formalin labeled hernia sac is a 4.0 x 3.0 x 0.1-0.25 cm portion of edematous and erythematous, aparicio, pink-maroon fibromembranous tissue with attached fibroadipose tissue. On sectioning the fibromembranous tissue is thin and delicate and the attached fibroadipose tissue is unremarkable. Receiving Inspector sections are submitted in a cassette labeled B1. CEDS CONTINUED ON NEXT PAGE ----- ------- Name: Deepak Cantor Age/Sex: 48/M : 1975 Unit#: [id number] Attend Dr: Luis Schwab MD Re09/08/23 Status: [facility] Location: [facility] Disch: ----- ------- SPEC : [id number] RECD: 09/08/23-1309 STATUS: KIYA AGUILAR NUM: [id number] DOROTHY: 09/08/23-[address] [facility] [address]: Luis Schwab MD ENTERED: 09/08/23-1330 SP TYPE: Surgical OTHR DR: Katerina Hernandez MD ORDERED: Gross Micro L2, Gross Micro L5 Copies To: Katerina Hernandez MD [address] [place] [address] [phone] Luis Schwab MD [address] [place] [address] [place] [place], [place] [phone] ----- ------- Signed (signature on file) Anrdez Esposito MD 09/09/23 1350 ----- ------- END OF REPORT us Generic External Data Provider LAB TETE CAMPOS Final Result [facility] [address] [place] [phone] * (ABNORMAL) Basic Metabolic Panel, Fasting (03/27/2023 9:55 AM EDT) Sodium 142 135 - 145 mmol/L [facility] Potassium 4.0 3.3 - 5.1 mmol/L [facility] Chloride 110(H) 96 - 108 mmol/L [facility] Carbon Dioxide 25 22 - 29 mmol/L [facility] Anion Gap 11(L) 12 - 20 [facility] Urea Nitrogen (BUN) 20(H) 9 - 16 mg/dL [facility] Creatinine, Serum 1.10 0.5 - 1.4 mg/dL [facility] Estimated Glomerular Filt Rate >60 [facility] Comment:NOTE: For -Am erican individuals, multiply the result by 1.210.Chronic Kidney Disease: Estimated GFR < 60 mL/min/1.69o9Dihpap Kidney Disease: Estimated GFR < 15 mL/min/1.73m2 Glucose Fasting 92 60 - 99 mg/dL [facility] Calcium 8.9 8.4 - 10.2 mg/dL [facility] 03/27/2023 9:55 AM EDT 03/27/2023 2:11 PM EDT us Katerina Hernandez MD LAB BLOOD ORDERABLES Final Result Performing Organization Address City/State/[facility] Co de Phone Number [facility] [address] [place] [address] [phone] documented in this encounter Visit Diagnoses Diagnosis Decreased hearing of both ears- Primary documented in this encounter Care Teams Horse Wrangler Relationship Specialty Start Date End Date Katerina Hernandez MD [address] [place] [phone] PCP - General Internal Medicine 08/11/18 documented as of this encounter
--- OUTSIDE RECORDS SUMMARY | 2025-05-03 14:03 | XMS_ITS | Clinical Summary ---
Author Organization [employer] Address [address] [facility] [address] [place] [address] Care Team Providers Care Evp Chief Exploration Officer Name Role Phone Katerina Hernandez MD Primary Care Provider [phone]- [phone] Allergies Active Allergy Reactions Criticality Noted Date Comments Terbinafine Rash Medium 01/11/2022 Medications * This document contains information received from the source organization and may not represent a complete record from that organization. hydrocortisone (Anusol-HC) 2.5 % rectal creamIndications :Bleeding hemorrhoids Insert into the rectum 2 times daily. 28 g 3 Active ketoconazole (Nizoral) 2 % shampooIndicatio ns:Bleeding hemorrhoids Apply topically 2 (two) times a week. 120 mL 1 3 Active Diclofenac Sodium 1 % gelIndications:A cute pain of right knee APPLY TO THE AFFECTED AREA 3 TIMES A DAY 100 g 3 Active diphenhydrAMINE (BENADryl) 25 MG tablet Take 1 tablet (25 mg) by mouth if needed at bedtime (cough) for up to 15 doses. 15 tablet 4 Active vardenafil (Levitra) 10 MG tabletIndication s:Other male erectile dysfunction TAKE 1 TABLET (10 MG) BY MOUTH IF NEEDED EACH DAY FOR ERECTILE DYSFUNCTION. 10 tablet 5 Active Active Problems Problem Noted Date Diagnosed Date MDD (major depressive disorder) 04/07/2023 Assessment & Plan (04/09/2023 12:03 PM EDT): Patient with symptoms of anhedonia, depressed, sleep disturbance, fatigued, poor appetite, feelings of guilt and difficulty concentrating. Symptoms occur nearly everyday and have been present for the last 15 months in the context of experiencing long lasting COVID side effects and family stressors. Patient will benefit from receiving OP cognitive therapy to help decrease unhelpful thinking patterns. At this time Deepak Cantor meets criteria for Visit Diagnoses: Problem List Items Addressed This Visit Other MDD (major depressive disorder) Patient ready to address current needs Yes Strengths include positive family and community support. PLAN: 1. Follow up with [facility]: Not recommended for follow-up 2. Patient goal is to feel more active and less depressed 3. Behavioral Recommendations a. Referral for OP individual therapy b. Practice self-care c. Incorporate grounding mechanisms into daily routine Encounters Date Type Department Care Team Description 03/10/2025 3:45 PM EDT Office Visit [facility] [address] [place] [address] Katerina Hernandez MD Polyuria (Primary Dx); Cystitis; Other male erectile dysfunction; Chronic pain of left knee 03/10/2025 Refill [facility] [address] [place] [address] Katerina Hernandez MD Other male erectile dysfunction 03/10/2025 Travel 03/10/2025 Telephone [facility] [address] [place] [address] Katerina Hernandez MD Nurse Triage from Last 3 Months Immunizations Immunization Administration Dates Next Due Influenza injectable quadrivalent preservative f ree 05/07/2023 Social History Tobacco Use Types Packs/Day Years Used Date Smoking Tobacco: Never Smokeless Tobacco: Never Tobacco Cessation:Counseling Given: Not Answered Depression Answer Date Recorded Patient Health Questionnaire-9 Score 13 04/09/2023 Depression Answer Date Recorded Patient Health Questionnaire-2 Score 5 04/09/2023 Sex and Gender Information Value Date Recorded Sex Assigned at Male 06/10/2022 10:17 AM EDT Legal Sex Male 10:17 AM EDT Gender Identity Male 06/10/2022 10:17 AM EDT Sexual Orientation Straight 06/10/2022 10 :17 AM EDT Last Filed Vital Signs Vital Sign Reading Time Taken Comments Blood Pressure 124/78 03/10/2025 3:45 PM EDT Pulse 81 03/10/2025 3:45 PM EDT Temperature 36.6 C (97.8 F) 08/27/2023 10:13 AM EST Respiratory Rate 20 03/10/2025 3:45 PM EDT Oxygen Saturation 96% 03/10/2025 3:45 PM EDT Inhaled Oxygen Concentration - - Weight 103 kg (226 lb) 03/10/2025 3:45 PM EDT Height 175.3 cm (5' 9 ) 03/10/2025 3:45 PM EDT Body Mass Index 33.37 03/10/2025 3:45 PM EDT Plan of Treatment Health Maintenance Due Date Last Done Comments CT Colonography 1975 FIT DNA/Cologuard 1975 FIT 1975 FOBT 1975 HIV Screening 1975 SDOH Screening 1975 Sigmoidoscopy 1975 Disability Screening 1975 Alcohol/Substance Use Screening 1985 Family Planning (PISQ) 1988 Hepatitis C Screening 1991 Hepatitis B Vaccines (1 of 3 - 19+ 3-dose series) 1992 Pneumococcal Vaccine: 50+ Years (1 of 1 - PCV) 2023 Zoster Vaccines (1 of 2) 2023 Depression Monitoring 10/09/2023 04/09/2023 , 04/09/2023 COVID-19 Vaccine (3 - 2024-2 6 season) 2025 01/11/2022, 12/21/2021 Influenza Vaccine (#1) 2025 3, 05/27/2018, 04/26/2014 Tobacco Screening 03/10/2026 03/10/2025 Lipid Panel 03/27/2028 03/27/2023 DTaP/Tdap/Td Vaccines (2 - T d or Tdap) 05/27/2028 05/27/2018 Colonoscopy 02/03/2029 Colorectal Cancer Screening 02/03/2029 RSV Patients and Patients Aged 60 years or older (1 - 1-dose 75+ series) 2048 HIB Vaccines Aged Out No longer eligi ble based on patient's age to complete this topic HPV Vaccines Aged Out No longer eligi ble based on patient's age to complete this topic Hepatitis A Vaccines Aged Out No long er eligible based on patient's age to complete this topic IPV Vaccines Aged Out No longer eligi ble based on patient's age to complete this topic Meningococcal B Vaccine Aged Out No l onger eligible based on patient's age to complete this topic Meningococcal Vaccine Aged Out No marcia taya eligible based on patient's age to complete this topic RSV under 20 months Aged Out No longe r eligible based on patient's age to complete this topic Rotavirus Vaccines Aged Out No longer eligible based on patient's age to complete this topic Procedures Procedure Name Priority Date/Time Associated Diagnosis Comments POCT GLUCOSE Routine 03/10/2025 4:34 PM EDT Polyuria Cystitis POCT GLYCATED HEMOGLOBIN, TOTAL Routine 03/10/2025 4:33 PM EDT Polyuria Cystitis POCT URINALYSIS DIPSTICK Routine 03/10/2025 8:43 AM EDT Polyuria LIPID PANEL, STANDARD Routine 03/27/2023 9:55 AM EDT Bleeding hemorrhoids from Last 3 Months or Most Recently Relevant to Health Maintenance Results * POCT Glucose (03/10/2025 4:34 PM EDT) Glucose Blood, POC 171 60 - 200 mg/dL QC Media Lot # [id number] Lot# Expiration Date , Comment:random Blood Capillary blood specimen / Unknown 03/10/2025 4:34 PM EDT Katerina Hernandez MD POINT OF CARE TEST ENTER/ED IT ORDERABLES Final Result * POCT HGB A1C (03/10/2025 4:33 PM EDT) Hemoglobin A1C 4.8 4.0 - 5.7 % QC Media Lot # [id number] Lot# Expiration Date [id number] Blood 03/10/2025 4:33 PM EDT us Katerina Hernandez MD POINT OF CARE TEST ENTER/ED IT ORDERABLES Final Result * (ABNORMAL) POCT Urinalysis (03/10/2025 8:43 AM EDT) Color, UA Yellow Clarity, UA Clear Glucose, UA Negative Bilirubin, UA Negative Ketones, UA Negative Spec Grav, UA 1.030 Blood, UA Positive(A) Negative, None Detected Comment:trace-intact pH, UA 6.0 Protein, UA Negative Urobilinogen, UA 0.2 Leukocytes, UA Negative Negative, Rare, Trace Nitrite, UA Negative Negative, None Detected Appearance, UA clear QC Media Lot # [id number] Lot# Expiration Date Urine 03/10/2025 8:43 AM EDT Katerina Hernandez MD POINT OF CARE TEST ENTER/ED IT ORDERABLES Final Result * Lipid Panel, Standard (03/27/2023 9:55 AM EDT) Triglycerides 90 mg/dL [facility] Comment:Desirable Triglyceri de: less than 150 mg/dLBorderline High Triglyceride 150-199 mg/dLHigh Triglyceride: 200-499 mg/dLVery High Triglyceride: greater than or equal to 5OO mg/dL Cholesterol 133 mg/dL [facility] Comment:Desirable Cholestero l: less than 200 mg/dLBorderline High Cholesterol: 200-239 mg/dLHigh Cholesterol: greater than 239 mg/dL LDL Cholesterol Calculated 74 mg/dl [facility] Comment:Desirable LDL: less than 100 mg/dLNear Optimal/Above Optimal LDL: 110- 129 mg/dLBorderline High LDL: 130-159 mg/dLHigh LDL: 160-189 mg/dLVery High LDL: greater than or equal to 190 mg/dL HDL Cholesterol 41 mg/dL [facility] Comment:Desirable HDL: great er than 40 mg/dL Note: This HDL assay may give artificially low results in patients with liver disease. Blood Venous blood specimen / Unknown 03/27/2023 9:55 AM EDT 03/27/2023 2:11 PM EDT Katerina Hernandez MD LAB BLOOD ORDERABLES Final Result [facility] [address] [place] [phone] [phone] from Last 3 Months or Most Recently Relevant to Health Maintenance Insurance Con[employer] C3 Care Teams Evp Chief Exploration Officer Relationship Specialty Start Date End Date Katerina Hernandez MD [address] [place] [phone] PCP - General Internal Medicine 08/11/18
--- OUTSIDE RECORDS SUMMARY | 2025-05-03 14:03 | XMS_ITS | Encounter Summary ---
Author Organization [email or web address] Address [address] [place] [address] [address] [place] [address] Care Team Providers Care District Plant Supervisor Name Role Phone Katerina Hernandez MD Primary Care Provider [phone]- [phone] Reason for Visit * Reason Comments Med Refill Encounter Details Date Type Department Care Team ([facility] st Contact Info) Description 09/23/2024 Refill [facility] [address] [place] [address] Katerina Hernandez MD [address] [place] [address] Bleeding hemorrhoids Social History Tobacco Use Types Packs/Day Years Used Date Smoking Tobacco: Never Smokeless Tobacco: Never Depression Answer Date Recorded Patient Health Questionnaire-9 [...] on file documented as of this encounter Visit Diagnoses Diagnosis Bleeding hemorrhoids Unspecified hemorrhoids with other complication documented in this encounter Additional Health Concerns Assessment Noted Time PHQ-9 Depression Total Score: 13 04/09/ 023 9:58 AM EDT documented as of this encounter Care Teams District Plant Supervisor Relationship Specialty Start Date End Date Katerina Hernandez MD [address] [place] [address] PCP - General Internal Medicine 08/11/18 documented as of this encounter
--- OUTSIDE RECORDS SUMMARY | 2025-05-03 14:03 | XMS_ITS | Encounter Summary ---
Author Organization [employer] Address [address] [facility] 7 [place] [address] Care Team Providers Care Secondary School Teacher Librarian Name Role Phone Katerina Hernandez MD Primary Care Provider [phone]- [phone] Reason for Visit * Reason Onset Date Comments Referral 02/20/2023 Encounter Details Date Type Department Care Team ([facility] st Contact Info) Description 02/20/2023 Telephone [facility] CH[facility] MED & PEDS [address] [place], [place] [phone] Katerina Hernandez MD [address] [place] [address] Referral Social History Tobacco Use Types Packs/Day Years Used Date Smoking Tobacco: Never Smokeless Tobacco: Never Sex and Gender Information Value Date Recorded Sex Assigned at Male 06/10/2022 10:17 AM EDT Legal Sex Male 10:17 AM EDT Gender Identity Male 06/10/2022 10:17 AM EDT Sexual Orientation Straight 06/10/2022 10 :17 AM EDT documented as of this encounter Miscellaneous Notes * Telephone Encounter - Ny Rodriguez - 02/20/2023 9:44 AM EDT Tc from patients spouse (not on HIPPA) requesting a new referral for speech and hearing to get new hearing aids. documented in this encounter Plan of Treatment Not on file documented as of this encounter Visit Diagnoses Not on filedocumented in this encounter Care Teams Secondary School Teacher Librarian Relationship Specialty Start Date End Date Katerina Hernandez MD [address] [place] [phone] PCP - General Internal Medicine 08/11/18 documented as of this encounter
--- NOTE | 2025-05-04 16:12 | MHC.AU.HA3 ---
Hearing Instrument Follow-Up- Binaural Date of Visit: 05/04/25 Right Ear: Red, Model, Color, Serial Number: Sonam Momin L70-R SN: [id number] Color: Beige [employer] Rep[employer] Warranty: 11/21/2026 [employer] Loss and Damage Warranty: 11/21/2026 [facility] Service Plan: 11/19/2024 Battery Size: Rechargeable Earmold/Dome/CShell/SlimTip:MicroSonic M45 Canal Lock Dispensed By: [facility] Date of Fittin11/20/2023 Left Ear: Red, , Color, Serial Number: Sonam Momin L70-R SN: [id number] Color: Beige [employer] Warranty: 11/21/2026 [employer] Loss and Damage Warranty: 11/21/2026 [facility] Service Plan: 11/19/2024 Battery Size: Rechargeable Earmold/Dome/CShell/SlimTip: MicroSonic M45 Canal Lock Dispensed By: [facility] Date of Fittin11/20/2023 Follow-Up Summary: Both HAs/EMs dropped off 05/03/2025. Assessed on 05/04/2025. Left tone hook broken, right tone hook full of wax. Tubes extremely hard/discolored. Cleaned HAs (2). Cleaned EMs (2). Replaced tubing (2). 56075 x6. Replaced both tone hooks. Vacuumed microphones. Ran through dehumidifier. Listening check demonstrated HAs amplifying clearly. Connected to [employer], no firmware updates. 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 Recommendations: Hearing instrument follow-up or maintenance as needed. Please contact our clinic with any questions or concerns. Diagnosis Code(s): Primary Diagnosis: H90.3 Bilateral Sensorineural Hearing Loss Signature: Provider: Gabino Welsh, [facility]
== END 2025-05-03 11:14 | disposition home or self-care (01) ==
LOC: HO.HAP 11:13
PROVIDERS: Visit Provider Internal Medicine
DX: Z13.89 Encounter for screening for other disorder (principal)

== ENCOUNTER 2025-05-06 09:43 | Outpatient (REF) | payer MEDICAID, SELFPAY ==
--- OUTSIDE RECORDS SUMMARY | 2025-05-06 10:44 | XMS_ITS | Encounter Summary ---
Author Organization [employer] Address [address] [facility] 7 [place] [address] Care Team Providers Care Forensic Engineer Name Role Phone Katerina Hernandez MD Primary Care Provider +1- [phone] Reason for Visit * Reason Onset Date Comments Referral 02/20/2023 Encounter Details Date Type Department Care Team ([facility] st Contact Info) Description 02/20/2023 Telephone [facility] CHC MED & PEDS [address] [place], [place] [phone] Katerina Hernandez MD [address] [place] [address] Referral Social History Tobacco Use Types Packs/Day [...] on filedocumented in this encounter Care Teams Forensic Engineer Relationship Specialty Start Date End Date Katerina Hernandez MD [address] [place] [phone] PCP - General Internal Medicine 08/11/18 documented as of this encounter
--- OUTSIDE RECORDS SUMMARY | 2025-05-06 10:44 | XMS_ITS | Clinical Summary ---
Author Organization [employer] Address [address] [facility] 7t [place] [address] Care Team Providers Care Electro Plater Name Role Phone Katerina Hernandez MD Primary Care Provider +1- [phone] Allergies Active Allergy Reactions Criticality Noted Date [...] community support. PLAN: 1. Follow up with [facility]: Not recommended for follow-up 2. Patient goal is to feel more active and less depressed 3. Behavioral Recommendations a. Referral for OP individual therapy b. Practice self-care c. Incorporate grounding mechanisms into daily routine Encounters Date Type Department Care Team Description 03/10/2025 3:45 PM EDT Office Visit [facility] MED & PEDS [address] [place] [address] Katerina Hernandez MD Polyuria (Primary Dx); Cystitis; Other male erectile dysfunction; Chronic pain of left knee 03/10/2025 Refill [facility] MED & PEDS [address] [place] [address] Katerina Hernandez MD Other male erectile dysfunction 03/10/2025 Travel 03/10/2025 Telephone [facility] MEDICINE [address] [place] [address] Katerina Hernandez MD Nurse Triage [...] Media Lot # [id number] Lot# Expiration Date [id number] Blood 03/10/2025 4:33 PM EDT us Katerina [...] (03/27/2023 9:55 AM EDT) Triglycerides 90 mg/dL [facility] Comment:Desirable Triglyceri de: less than 150 mg/dLBorderline High Triglyceride 150-199 mg/dLHigh Triglyceride: 200-499 mg/dLVery High Triglyceride: greater than or equal to 5OO mg/dL Cholesterol 133 mg/dL [facility] Comment:Desirable Cholestero l: less than 200 mg/dLBorderline High Cholesterol: 200-239 mg/dLHigh Cholesterol: greater than 239 mg/dL LDL Cholesterol Calculated 74 mg/dl [facility] Comment:Desirable LDL: less than 100 mg/dLNear Optimal/Above Optimal LDL: 110- 129 mg/dLBorderline High LDL: 130-159 mg/dLHigh LDL: 160-189 mg/dLVery High LDL: greater than or equal to 190 mg/dL HDL Cholesterol 41 mg/dL [facility] Comment:Desirable HDL: great er than 40 mg/dL Note: This HDL assay may give artificially low results in patients with liver disease. Blood Venous blood specimen / Unknown 03/27/2023 9:55 AM EDT 03/27/2023 2:11 PM EDT Katerina Hernandez MD LAB BLOOD ORDERABLES Final Result [facility] [address] [place] [address] [phone] from Last 3 Months or Most Recently Relevant to Health Maintenance Insurance [employer] C3 Care Teams Electro Plater Relationship Specialty Start Date End Date Katerina Hernandez MD [address] [place] [phone] PCP - General Internal Medicine 08/11/18
--- OUTSIDE RECORDS SUMMARY | 2025-05-06 10:44 | XMS_ITS | Encounter Summary ---
Author Organization [employer] Address [address] [facility] 7t [place] [address] Care Team Providers Care Boat Canvas Installer Name Role Phone Katerina Hernandez MD Primary Care Provider [phone]- [phone] Encounter Details Date Type Department Care Team ([facility] st Contact Info) Description 02/24/2023 Orders Only [facility] CHC MED & PEDS [address] [place], [place] [phone] Katerina Hernandez MD [address] [place], [place] [phone] Decreased hearing of both ears (Primary Dx) [...] 9 AM EDT 02/04/2024 11:37 AM EDT [facility] - 02/05/2024 10:50 AM EDT ----- ------- Name: Deepak Cantor Age/Sex: 48/M : 1975 Unit#: [id number] Attend Dr: Mela Lama MD Re02/04/24 Status: [facility] Location: [facility] Disch: ----- ------- SPEC : [id number] RECD: 02/04/24-1137 STATUS: KIYA AGUILAR NUM: [id number] DOROTHY: 02/04/24-[address] [facility] [address]: Mela Lama MD ENTERED: 02/04/24-1145 SP [...] Rema JAMES Copies To: Katerina Hernandez MD [address] [address] Mela Lama MD [facility] [address] [place] [phone] ----- ------- Signed (signature on file) Edith [place] 02/05/24 1050 ----- ------- END OF REPORT Generic External Data Provider LAB BLOOD ORDERAB LES Final Result [facility] [address] [place] [phone] * Gross and Microscopic Level 2 (09/08/2023 11:16 AM EST) 09/08/2023 11:1 6 AM EST 09/08/2023 1:09 PM EST Meka [facility] - 09/09/2023 1:50 PM EST ----- ------- Name: Deepak Cantor Age/Sex: 48/M : 1975 Unit#: [id number] Attend Dr: Luis Schwab MD Re09/08/23 Status: [facility] Location: [facility] Disch: ----- ------- SPEC : [id number] RECD: 09/08/23-1309 STATUS: [facility] NUM: [id number] DOROTHY: 09/08/23-[address] [facility] [address]: Luis Schwab MD ENTERED: 09/08/23-1330 SP [...] fibrous dermal tissue and unremarkable subcutaneous fat. Enlisted Aircrew/Aerial Observer/Gunner sections are submitted in cassettes A1 and A2. Part B: Received in formalin labeled hernia sac is a 4.0 x 3.0 x 0.1-0.25 cm portion of edematous and erythematous, aparicio, pink-maroon fibromembranous tissue with attached fibroadipose tissue. On sectioning the fibromembranous tissue is thin and delicate and the attached fibroadipose tissue is unremarkable. Enlisted Aircrew/Aerial Observer/Gunner sections are submitted in a cassette labeled B1. CEDS CONTINUED ON NEXT PAGE ----- ------- Name: Deepak Cantor Age/Sex: 48/M : 1975 Unit#: [id number] Attend Dr: Luis Schwab MD Re09/08/23 Status: [facility] Location: [facility] Disch: ----- ------- SPEC : [id number] RECD: 09/08/23-1309 STATUS: KIYA AGUILAR NUM: [id number] DOROTHY: 09/08/23-[address] [facility] [address]: Luis Schwab MD ENTERED: 09/08/23-1330 SP TYPE: Surgical OTHR DR: Katerina Hernandez MD ORDERED: Gross Micro L2, Gross Micro L5 Copies To: Katerina Hernandez MD [address] [place] [phone] Luis Schwab MD [address] [place] [address] Dr. [place], [place] [phone] ----- ------- Signed (signature on file) Andrez Esposito MD 09/09/23 1350 ----- ------- END OF REPORT us Generic External Data Provider LAB TETE CAMPOS Final Result [facility] [address] [place] [phone] * (ABNORMAL) Basic Metabolic Panel, Fasting (03/27/2023 9:55 AM EDT) Sodium 142 135 - 145 mmol/L [facility] Potassium 4.0 3.3 - 5.1 mmol/L [facility] Chloride 110(H) 96 - 108 mmol/L [facility] Carbon Dioxide 25 22 - 29 mmol/L [facility] Anion Gap 11(L) 12 - 20 [facility] Urea Nitrogen (BUN) 20(H) 9 - 16 mg/dL [facility] Creatinine, Serum 1.10 0.5 - 1.4 mg/dL [facility] Estimated Glomerular Filt Rate >60 [facility] Comment:NOTE: For -Am erican individuals, multiply the result by 1.210.Chronic Kidney Disease: Estimated GFR < 60 mL/min/1.49j6Ghpwwb Kidney Disease: Estimated GFR < 15 mL/min/1.73m2 Glucose Fasting 92 60 - 99 mg/dL [facility] Calcium 8.9 8.4 - 10.2 mg/dL [facility] 03/27/2023 9:55 AM EDT 03/27/2023 2:11 PM EDT us Katerina Hernandez MD LAB BLOOD ORDERABLES Final Result Performing Organization Address City/State/[facility] Co de Phone Number [facility] [address] [place] [address] [phone] documented in this encounter Visit Diagnoses Diagnosis Decreased hearing of both ears- Primary documented in this encounter Care Teams Boat Canvas Installer Relationship Specialty Start Date End Date Katerina Hernandez MD [address] [place] [phone] PCP - General Internal Medicine 08/11/18 documented as of this encounter
--- OUTSIDE RECORDS SUMMARY | 2025-05-06 10:44 | XMS_ITS | Encounter Summary ---
Author Organization [employer] Address [address] [place] [address] 7 [place] [address] Care Team Providers Care Compounding And Finishing Supervisor Name Role Phone Katerina Hernandez MD Primary Care Provider [phone]- [phone] Reason for Visit * Reason Comments Med Refill Encounter Details Date Type Department Care Team ([facility] st Contact Info) Description 09/23/2024 Refill [facility] CHC MED & PEDS [address] [place] [address] Katerina Hernandez MD [address] [place] [address] Bleeding hemorrhoids Social History Tobacco Use Types [...] documented as of this encounter Care Teams Compounding And Finishing Supervisor Relationship Specialty Start Date End Date Katerina Hernandez MD [address] [place] [address] PCP - General Internal Medicine 08/11/18 documented as of this encounter
== END 2025-05-06 09:44 | disposition home or self-care (01) ==
LOC: HO.HAP 09:43
PROVIDERS: Visit Provider Internal Medicine
DX: Z46.1 Encounter for fitting and adjustment of hearing aid (principal); H90.3 Sensorineural hearing loss, bilateral
CPT/HCPCS: 92593; 99499